=== PATIENT | male | born 1950 | race Caucasian/White ===

== ENCOUNTER 2019-04-19 12:25 | Inpatient (IN) ==
--- NOTE | 2019-04-19 12:41 | Emergency Department Note ---
Disposition Clinical Impression: Elevated troponin, Elevated d-dimer, RODOLFO (acute kidney injury), Right-sided chest wall pain Disposition: Admitted As Inpatient [facility] Care Provider[facility] - Forms: ED Satisfaction Letter Time of Disposition: 16:39 General Adult HPI - General Stated complaint: elevated troponine Time Seen by Provider: 04/19/19 12:31 Source: patient, EMS Mode of arrival: EMS Limitations: no limitations Nursing Notes Reviewed: Yes Vital Signs Reviewed: Yes - History of Present Illness HPI Narrative: Patient is a 68-year-old male with a past medical history including gastroesophageal reflux disease, diabetes mellitus, hypothyroidism, hypertension, iron deficient anemia, hyperlipidemia, presenting with chief complaint of right chest wall pain after a fall. Patient was sent by the [facility] secondary to elevated troponin and d-dimer. The patient states 2 days ago, he was outside and getting out of a chair when he lost his balance and the chair tilted and fell landing on his right side. He landed on his right forearm and right side of his chest. He denies hitting his head or loss of consciousness. He states since then, he complains of right chest wall pain that has been constant and achy. Nothing makes it better or worse. He denies shortness of breath, lightheadedness or dizziness, nausea or vomiting, diaphoresis. He denies history of coronary artery disease or stent placements. He went to the [place] today to see if he had a rib fracture. Chest x-ray and rib series show no rib fractures or pneumothorax. He had a CT head that showed no acute intracranial abnormality. Lab work was also obtained while he was there. D-dimer was elevated at 0.80 with reference range of 0.112 0.53. He had a troponin elevation of 0.415 with reference range of 0-0.045. CK was not elevated, calcium 8.9, sodium 137, potassium 4.1, glucose 180, BUN 50, creatinine 1.64, GFR 44.5. He denies a history of chronic kidney disease. White blood count 8.6, hemoglobin 14.2 hematocrit 39.2, platelet count 158. Patient states he was given a pain shot and his chest wall pain improved. He was sent here for elevated troponin and d-dimer. - Related Data Home Medications Medication Instructions Recorded Confirmed Aspirin 81 mg PO DAILY 08/21/17 08/21/17 Cholecalciferol (Vitamin D3) 1,000 unit PO DAILY 08/21/17 08/21/17 [Vitamin D] Metoprolol [Lopressor] 12.5 mg PO BID 08/21/17 08/21/17 Multivit-Min/FA/Lycopen/Lutein 1 tab PO DAILY 08/21/17 08/21/17 [Centrum Silver Tablet] [place]-3/Dha/Epa/Fish Oil [Fish Oil 1 tab PO DAILY 08/21/17 08/21/17 1,000 mg Softgel] Phenytoin ER [Dilantin ER] 100 mg PO BID 08/21/17 08/21/17 Potassium Chloride [Klor-Con 10] 10 meq PO DAILY 08/21/17 08/21/17 Vit A/Vit C/Vit E/Zinc/Copper 1 tab PO DAILY 08/21/17 08/21/17 [Preservision Areds Tablet] Acitretin [Soriatane] 25 mg PO DAILY 04/19/19 04/19/19 Atorvastatin Calcium [Lipitor] 40 mg PO DAILY 04/19/19 04/19/19 Calcipotriene [Dovonex] 1 gm TP BID 04/19/19 04/19/19 Capsaicin [Arthritis Pain Relief] 1 gm TP QID 04/19/19 04/19/19 Carboxymethylcellulos/Glycerin 1 drop OP TID 04/19/19 04/19/19 [Refresh Optive Gel Eye Drops] Cyclobenzaprine HCl 10 mg PO BID PRN 04/19/19 04/19/19 Gabapentin [Neurontin] 300 mg PO HS 04/19/19 04/19/19 Gabapentin [Neurontin] 600 mg PO ,04/19/19 04/19/19 Insulin ASPART [Novolog Flexpen] 10 unit SQ 08,12 04/19/19 04/19/19 Insulin ASPART [Novolog Flexpen] 16 unit SQ 1700 04/19/19 04/19/19 Insulin Glargine [Lantus] 48 unit SQ HS 04/19/19 04/19/19 Levothyroxine [Synthroid] 2 tab PO DAILY@0630 04/19/19 04/19/19 Lisinopril [Zestril] 40 mg PO DAILY 04/19/19 04/19/19 Loratadine [Allergy Relief] 10 mg PO DAILY 04/19/19 04/19/19 Metformin HCl [Metformin ER 2,000 mg PO DAILY 04/19/19 04/19/19 Osmotic] Mirtazapine [Remeron] 7.5 mg PO HS 04/19/19 04/19/19 Phenytoin ER [Dilantin ER] 300 mg PO HS 04/19/19 04/19/19 hydroCHLOROthiazide 12.5 mg PO DAILY 04/19/19 04/19/19 [Hydrochlorothiazide] Allergies Allergy/AdvReac Type Severity Reaction Status Date / Time Sacrosidase Allergy Swelling Verified 08/21/17 11:56 of Lip/Tongue/Throat All systems ED: reviewed and negative except as stated. Review of Systems: As Per HPI Constitutional: Denies: fever, chills Cardiovascular: Reports: chest pain. Denies: palpitations Respiratory: Denies: cough, dyspnea Gastrointestinal: Denies: abdominal pain, nausea, vomiting, diarrhea Musculoskeletal: Denies: back pain Neurological: Denies: headache, weakness, numbness Past Medical History - Past Medical History Attestation: Yes The following information was validated with the patient. Source: patient Medical history: Reports: CVA, diabetes, seizures Surgical history: Reports: other Psychiatric history: Reports: no psych history - Social History Smoking Status: Never smoker Alcohol use: Reports: none Drug use: Reports: none Physical Exam - General Limitations: no limitations General appearance: alert, in no apparent distress - Head Head exam: atraumatic, normocephalic - Eye Eye exam: Present: normal appearance, PERRL, EOMI - ENT ENT exam: normal exam, mucous membranes moist - Neck Neck exam: Present: normal inspection, full ROM - Chest Chest inspection: Present: normal inspection, symmetric chest wall rise - Respiratory Respiratory exam: Present: normal lung sounds bilaterally. Absent: respiratory distress, wheezes - Cardiovascular Cardiovascular exam: Present: regular rate, normal rhythm, other (3/6 systolic murmur) - Abdominal Exam Abdominal exam: Present: soft, Non-Tender. Absent: distention - Extremities Exam Extremities exam: Present: normal capillary refill. Absent: pedal edema, calf tenderness - Neurological Exam Neurological exam: Present: alert, oriented X3 - Skin Skin exam: Present: other (Ecchymosis over the medial portion of the right forearm without tenderness to palpation, equal radial pulses, full range of motion of all 4 extremities) Course Vital Signs Temperature 98.5 F 04/19/19 12:38 Pulse Rate 97 04/19/19 12:38 Respiratory Rate 12 04/19/19 12:38 Blood Pressure 127/81 04/19/19 12:38 O2 Sat by Pulse Oximetry 99 04/19/19 12:38 Temperature 98.5 F 04/19/19 12:38 Pulse Rate 97 04/19/19 16:22 Respiratory Rate 16 04/19/19 16:22 Blood Pressure 145/85 04/19/19 16:22 O2 Sat by Pulse Oximetry 100 04/19/19 16:22 Oxygen Delivery Oxygen Delivery Room Air Medical Decision Making - MDM Narrative Medical decision making narrative: Labs from the [place] reviewed. Patient does have chest wall tenderness to palpation in on the right around ribs 5 through 7. He denies any shortness of breath or any other chest pain. He denies history of kidney disease and his BUN and creatinine are elevated. Labs are reviewed from the [facility]. He does have elevated troponin and d-dimer as well which she was sent in for. Patient is no acute distress. EKG shows no acute ischemic changes. We will repeat the patient's troponin BMP. We will obtain a CTA chest to rule out a pulmonary embolism secondary to the elevated d-dimer this is medically necessary. Discussed this with environmental services floor tech. We will give him a liter of IV fluids for possible RODOLFO versus EKG and heart rate has been 100's. 13:50 Patient's troponin elevated at 0.28. No prior to compare to. GFR is 41 however due to elevated troponin and d-dimer will need the CTA chest to rule out PE. W ill also give 1 L IVF bolus. 15:30 CTA is negative for pulmonary embolism. Hospice has been paged for admission for elevated troponin and d-dimer, acute kidney injury. 16:[address] Deutsch, hospitalist who accepts admission - Medical Records Medical records reviewed: Yes I reviewed the patient's medical records. - Lab Data Lab results reviewed: Yes I reviewed the patient's lab results. Result diagrams: 04/19/19 13:09 Lab Results 04/19/19 Range/Units 13:09 Sodium 136 (136-145) mEq/L Potassium 4.2 (3.5-5.1) mEq/L Chloride 104 (98-107) mEq/L Carbon Dioxide 24 (23-29) mEq/L BUN 49 H (8-23) mg/dL Creatinine 1.66 H (0.70-1.30) mg/dL Est GFR ( Amer) 50 L (> 60) Est GFR (Non-Af Amer) 41 L (> 60) BUN/Creatinine Ratio 30 H (6-26) Glucose 168 H (70-105) mg/dL Calculated Osmolality 299 (280-300) Calcium 9.3 (8.6-10.3) mg/dL Troponin I 0.28 H* (< 0.04) ng/mL - Radiology Data Radiology results reviewed: Yes I reviewed the patient's radiology results. Chest CTA 04/19/19 12:49 IMPRESSION: No evidence of pulmonary embolism or acute pulmonary abnormality. Large hiatal hernia D/ / David Tinoco MD / David Tinoco MD Interpreting Provider: David Tinoco MD Chest CTA 04/19/19 12:49 IMPRESSION: No evidence of pulmonary embolism or acute pulmonary abnormality. Large hiatal hernia D/ / David Tinoco MD / David Tinoco MD Interpreting Provider: David Tinoco MD - EKG Data EKG #1 EKG attestation: Yes I reviewed and interpreted this EKG. EKG results narrative: EKG obtained at 1237 shows sinus rhythm with heart rate 98, TX interval 201, QRS duration 96, QTc 456, left axis deviation, no ST elevation or depression, compared to [facility]30 that showed sinus tachycardia with heart rate 111, no ST elevation or depression. There is otherwise no acute changes.
[2019-04-19] MEDS ORDERED: Isovue-370 500 ML BOTTLE IVP ONE (12:49)
[2019-04-19 13:49] LABS: Calcium 9.3 mg/dL (8.6-10.3); Potassium 4.2 mEq/L (3.5-5.1)
[2019-04-19 13:54] LABS: Troponin I 0.28 ng/mL (< 0.04)
[2019-04-19] MEDS ORDERED: 0.9 % Sodium Chloride 1,000 ML IVC ONE (13:56)
--- NOTE | 2019-04-19 14:02 | Emergency Department Note ---
Disposition Clinical Impression: Elevated troponin, Elevated d-dimer, RODOLFO (acute kidney injury), Right-sided chest wall pain Disposition: Admitted As Inpatient Time of Disposition: 16:52 General Adult HPI - General Chief complaint: ED Chest Pain Stated complaint: elevated troponine Time Seen by Provider: 04/19/19 12:31 Source: patient, EMS Mode of arrival: EMS Limitations: no limitations - History of Present Illness Pain Scale: 0 - Related Data Home Medications Medication Instructions Recorded Confirmed Aspirin 81 mg PO DAILY 08/21/17 04/19/19 Cholecalciferol (Vitamin D3) 1,000 unit PO DAILY 08/21/17 04/19/19 [Vitamin D] Metoprolol [Lopressor] 50 mg PO BID 08/21/17 04/19/19 Multivit-Min/FA/Lycopen/Lutein 1 tab PO DAILY 08/21/17 04/19/19 [Centrum Silver Tablet] [place]-3/Dha/Epa/Fish Oil [Fish Oil 2 tab PO DAILY 08/21/17 04/19/19 1,000 mg Softgel] Phenytoin ER [Dilantin ER] 400 mg PO DAILY 08/21/17 04/19/19 Potassium Chloride [Klor-Con 10] 10 meq PO DAILY 08/21/17 04/19/19 Vit A/Vit C/Vit E/Zinc/Copper 1 tab PO DAILY 08/21/17 04/19/19 [Preservision Areds Tablet] Acitretin [Soriatane] 25 mg PO DAILY 04/19/19 04/19/19 Atorvastatin Calcium [Lipitor] 40 mg PO DAILY 04/19/19 04/19/19 Calcipotriene [Dovonex] 1 gm TP BID 04/19/19 04/19/19 Capsaicin [Arthritis Pain Relief] 1 gm TP QID 04/19/19 04/19/19 Carboxymethylcellulos/Glycerin 1 drop OP TID 04/19/19 04/19/19 [Refresh Optive Gel Eye Drops] Cyclobenzaprine HCl 10 mg PO BID PRN 04/19/19 04/19/19 Gabapentin [Neurontin] 300 mg PO HS 04/19/19 04/19/19 Gabapentin [Neurontin] 600 mg PO 08,04/19/19 04/19/19 Insulin ASPART [Novolog Flexpen] 10 unit SQ ,04/19/19 04/19/19 Insulin ASPART [Novolog Flexpen] 16 unit SQ 1700 04/19/19 04/19/19 Insulin Glargine [Lantus] 48 unit SQ HS 04/19/19 04/19/19 Levothyroxine [Synthroid] 2 tab PO DAILY@0630 04/19/19 04/19/19 Lisinopril [Zestril] 40 mg PO DAILY 04/19/19 04/19/19 Loratadine [Allergy Relief] 10 mg PO DAILY 04/19/19 04/19/19 Metformin HCl [Metformin ER 2,000 mg PO DAILY 04/19/19 04/19/19 Osmotic] Mirtazapine [Remeron] 7.5 mg PO HS 04/19/19 04/19/19 Phenytoin ER [Dilantin ER] 300 mg PO HS 04/19/19 04/19/19 hydroCHLOROthiazide 12.5 mg PO DAILY 04/19/19 04/19/19 [Hydrochlorothiazide] Allergies Allergy/AdvReac Type Severity Reaction Status Date / Time Sacrosidase Allergy Swelling Verified 08/21/17 11:56 of Lip/Tongue/Throat Constitutional: Denies: fever, chills Cardiovascular: Reports: chest pain. Denies: palpitations Respiratory: Denies: cough, dyspnea Gastrointestinal: Denies: abdominal pain, nausea, vomiting, diarrhea Musculoskeletal: Denies: back pain Neurological: Denies: headache, weakness, numbness Past Medical History - Past Medical History Medical history: Reports: CVA, diabetes, seizures Surgical history: Reports: other Psychiatric history: Reports: no psych history - Social History Smoking Status: Never smoker Alcohol use: Reports: none Drug use: Reports: none Physical Exam - General Limitations: no limitations General appearance: alert, in no apparent distress Course Vital Signs Temperature 98.5 F 04/19/19 12:38 Pulse Rate 97 04/19/19 12:38 Respiratory Rate 12 04/19/19 12:38 Blood Pressure 127/81 04/19/19 12:38 O2 Sat by Pulse Oximetry 99 04/19/19 12:38 Temperature 98.5 F 04/19/19 12:38 Pulse Rate 97 04/19/19 16:22 Respiratory Rate 16 04/19/19 16:22 Blood Pressure 145/85 04/19/19 16:22 O2 Sat by Pulse Oximetry 100 04/19/19 16:22 Oxygen Delivery Oxygen Delivery Room Air Medical Decision Making - Lab Data Result diagrams: 04/19/19 13:09 Lab Results 04/19/19 Range/Units 13:09 Sodium 136 (136-145) mEq/L Potassium 4.2 (3.5-5.1) mEq/L Chloride 104 (98-107) mEq/L Carbon Dioxide 24 (23-29) mEq/L BUN 49 H (8-23) mg/dL Creatinine 1.66 H (0.70-1.30) mg/dL Est GFR ( Amer) 50 L (> 60) Est GFR (Non-Af Amer) 41 L (> 60) BUN/Creatinine Ratio 30 H (6-26) Glucose 168 H (70-105) mg/dL Calculated Osmolality 299 (280-300) Calcium 9.3 (8.6-10.3) mg/dL Troponin I 0.28 H* (< 0.04) ng/mL Attestation Statement - Attestation Attestation: I examined this patient and my medical decision-making was reviewed with the Resident Physician. I agree with the documented findings, disposition and treatment plan as described except to the extent set forth below. 68-year-old male presents emergency room for abnormal labs. Patient was sent to our ER from the [place] for an elevated troponin. Patient had gone in there as he was complaining of right-sided rib pain from a fall on Friday. States he got out of which chair lost his balance and fell down injuring the right side of his chest. He denied any LOC or head injury. He went in today because he is having pain over there on the right side. Was sent to the [place] urgent she is me to our emergency room because his troponin was elevated. It is in fact elevated again here. He has some borderline renal insufficiency. We have ordered a CTA of the chest. Chest x-ray at the [place] was negative. CT brain was also negative. He has no chest pain prior to the fall. He states he has not felt shortness of breath or any significant cough. No fevers. No history DVT or PE. No history of coronary disease. Patient will need to be admitted for this elevated troponin. I do not feel that this is renally induced however we will trend his troponin and is another reason to keep him in the hospital. EKG was documented by the resident. I agree with the above findings and documentation of the EKG
[2019-04-19] MEDS ORDERED: Ondansetron 4 MG/2 ML VIAL IVP PRN (17:06)
[2019-04-19] MEDS ORDERED: Acetaminophen 325 MG TABLET PO PRN (17:06)
[2019-04-19] MEDS ORDERED: Naloxone 0.4 MG/ML INJ IVP PRN (17:06)
--- NOTE | 2019-04-19 17:23 | Internal Med History&Physical ---
Date of Encounter: 04/19/19 Time of Encounter: 17:10 Internal Medicine - H&P: HPI Chief complaint: Chest pain Admitted From: Emergency Dept History of present illness: Renzo Fajardo is a 68 M w hx HTN, HLD, IDDM2, COPD, AMAN, hiatal hernia c/b GERD, seizures, hypothyroidism, former smoker, who p/w R-sided chest pain. States he was outside Friday afternoon watching his grandson and friend playing, and he was sitting in a lawn chair fairly low to the ground. At one point, he tried to get up, but during the process either he lost his footing or the chair slid causing him to lose his balance and he fell forward on his R side, scraping his arm and landing fairly forcefully on his R chest. States since then he has constant aching pain at site of impact, non-radiating, no N/V and no diaphoresis. Denies hx heart disease personally but does have father with extensive cardiac history including MIs and pacemaker. Pt went to [place] to see if he had a rib fx. CXR and CT head unremarkable. Labs notable for D-dimer 800, trop 0.415, Cr 1.64. Pt states he was "given a pain shot" with improvement in his symptoms. He was transferred to [facility] for a forementioned abnormal labs. In the ED, pt vitals T98.5, HR 90-100s, RR 12-17, SBP 120-160s, satting high 90s on room air. BMP and trop rechecked, showing Cr 1.6 and trop 0.28. CTPE unremarkable. ECG showing LAD but no ischemic ST/T changes. PMH: as above PSH: L shoulder surgery SH: former smoker quit 2012 FH: father with MIs and pacemaker Allergies: none Past Med Surg Social Fam HX - Past Medical History Medical history: CVA, diabetes, seizures Psychiatric history: no psych history - Past Surgical History Surgical History: other Additional surgical history: bone cyst - Social History Smoking Status: Never smoker Alcohol use: none Drug use: none Internal Medicine - H&P: Meds Aspirin 81 mg PO DAILY 08/21/17 [History] Cholecalciferol (Vitamin D3) [Vitamin D] 1,000 unit PO DAILY 08/21/17 [History] Metoprolol [Lopressor] 50 mg PO BID 08/21/17 [History] Multivit-Min/FA/Lycopen/Lutein [Centrum Silver Tablet] 1 tab PO DAILY 08/21/17 [History] [employer]-3/Dha/Epa/Fish Oil [Fish Oil 1,000 mg Softgel] 2 tab PO DAILY 08/21/17 [History] Phenytoin ER [Dilantin ER] 400 mg PO DAILY 08/21/17 [History] Potassium Chloride [Klor-Con 10] 10 meq PO DAILY 08/21/17 [History] Vit A/Vit C/Vit E/Zinc/Copper [Preservision Areds Tablet] 1 tab PO DAILY 08/21/17 [History] Acitretin [Soriatane] 25 mg PO DAILY 04/19/19 [History] Atorvastatin Calcium [Lipitor] 40 mg PO DAILY 04/19/19 [History] Calcipotriene [Dovonex] 1 gm TP BID 04/19/19 [History] Capsaicin [Arthritis Pain Relief] 1 gm TP QID 04/19/19 [History] Carboxymethylcellulos/Glycerin [Refresh Optive Gel Eye Drops] 1 drop OP TID 04/19/19 [History] Cyclobenzaprine HCl 10 mg PO BID PRN 04/19/19 [History] Gabapentin [Neurontin] 300 mg PO HS 04/19/19 [History] Gabapentin [Neurontin] 600 mg PO ,04/19/19 [History] Insulin ASPART [Novolog Flexpen] 10 unit SQ 08,12 04/19/19 [History] Insulin ASPART [Novolog Flexpen] 16 unit SQ 1700 04/19/19 [History] Insulin Glargine [Lantus] 48 unit SQ HS 04/19/19 [History] Levothyroxine [Synthroid] 2 tab PO DAILY@0630 04/19/19 [History] Lisinopril [Zestril] 40 mg PO DAILY 04/19/19 [History] Loratadine [Allergy Relief] 10 mg PO DAILY 04/19/19 [History] Metformin HCl [Metformin ER Osmotic] 2,000 mg PO DAILY 04/19/19 [History] Mirtazapine [Remeron] 7.5 mg PO HS 04/19/19 [History] Phenytoin ER [Dilantin ER] 300 mg PO HS 04/19/19 [History] hydroCHLOROthiazide [Hydrochlorothiazide] 12.5 mg PO DAILY 04/19/19 [History] Allergy/AdvReac Type Severity Reaction Status Date / Time Sacrosidase Allergy Swelling Verified 08/21/17 11:56 of Lip/Tongue/Throat All Systems PM: A 10-system review of systems was performed and is negative for pertinent findings except as documented above in the HPI. - Constitutional Vitals: Temp Pulse Resp BP Pulse Ox 98.5 F 97 16 145/85 100 04/19/19 12:38 04/19/19 16:22 04/19/19 16:22 04/19/19 16:22 04/19/19 16:22 Exam: General: NAD, AAOx3, good eye contact, well appearing Head: Atraumatic, normocephalic. Face symmetric Eyes: EOMI, sclerae anicteric ENT: Mucous membranes moist. Normal oral mucosa. Trachea midline. Thoracic: No visible chest wall deformities. Normal breath sounds b/l, no wheezing or crackles Cardio: Regular rate and rhythm, obvious systolic murmur Abdomen: Soft, nontender, nondistended but is large, BS normal Extremities: DP pulses 1+ b/l DP/PT, cool to touch. No clubbing, cyanosis. No edema Skin: Intact. No rashes, bruises, or ulcers Neuro: Awake, fully oriented. Good memory, concentration, attention. Speech fluent. CN II-XII grossly intact. Strength 5/5 in b/l UE and LE Internal Med - H&P Results - Labs CBC & Chem 7: 04/19/19 13:09 Labs: BMP 04/19/19 13:09 Sodium 136 Potassium 4.2 Chloride 104 Carbon Dioxide 24 BUN 49 H Creatinine 1.66 H Glucose 168 H Calcium 9.3 Cardiac Enzymes 04/19/19 Range/Units 13:09 Troponin I 0.28 H* (< 0.04) ng/mL - Impressions ITS Impressions Chest CTA 04/19/19 12:49 IMPRESSION: No evidence of pulmonary embolism or acute pulmonary abnormality. Large hiatal hernia D/ / David Tinoco MD / David Tinoco MD Interpreting Provider: David Tinoco MD - Summary of Assessment and Plan Summary of Assessment and Plan: Renzo Fajardo is a 68 M w hx HTN, HLD, IDDM2, COPD, AMAN, hiatal hernia c/b FROYLAN D, seizures, hypothyroidism, former smoker, who p/w R-sided chest pain. Chest pain: in context of minimal d-dimer elevation following fall for which CTPE unremarkable, and significant trop elevation that is downtrending with non- ischemic ECG and pain non-cardiac in nature - tele - trend trops - TTE - Cardio consult RODOLFO: unknown baseline, Cr 1.66 on admit, fluid bolus appropriately given with co ntrast, - will hold hctz and lisinopril - check UA and measure strict I&Os - renally dose other meds as needed, recheck Cr in AM Diminished pedal pulses, concern for PAD: denies claudication - STACY HTN: uncontrolled - continue home lopressor 12.5 bid - holding home lisinopril 40 and hctz 12.5 - start amlodipine 5 daily HLD: home ASA, lipitor 40 DM2: insulin dependent, w hyperglycemia, home lantus 48 qhs and SSI high dose, holding metformin 2000 ER daily Hypothyroidism: home synthroid Dep/anx: home remeron 7.5 qhs Seizures: home phenytoin 100/400 bid Psoriasis: home acitretin 25 daily, calcipotriene topical PPx: sqh Activity: ambulate FEN: ADA, no MIVF Lines: PIV Consults: Cardio Code: [id number] Dispo: obs for chest pain, anticipate 1-2 days, will be homegoing
[2019-04-19 18:38] LABS: Bilirubin,Urine Negative (Negative); Blood,Urine Negative (Negative); Clarity,Urine Clear (Clear); Color,Urine Yellow (Yellow); Glucose,Urine (UA) Normal (Normal); Ketones,Urine Negative (Negative); Leukocyte Esterase,Urine Negative (Negative); Nitrite,Urine Negative (Negative); PH,Urine 5.5 pH Units (5.0-8.0); Protein,Urine Negative (Neg-Trace); Specific Gravity,Urine 1.022 (1.010-1.025); Urobilinogen,Urine Normal (Normal)
[2019-04-19] MEDS: amLODIPine 5 MG TABLET PO SCH (19:34)
[2019-04-19] MEDS ORDERED: D5% in Water 1,000 ML IVC PRN (20:16)
[2019-04-19] MEDS ORDERED: *HR* Dextrose 50 % in Water (Syg) 50 ML SYRINGE IVP PRN (20:16)
[2019-04-19] MEDS ORDERED: Dextrose Gel 15 GM/37.5 ML TUBE PO PRN ×2 (20:16)
[2019-04-19] MEDS ORDERED: Perflutren Lipid Microsphere 1.3 ML in 0.9 % Sodium Chloride 8.7 ML IVP ONE (20:36)
[2019-04-19] MEDS ORDERED: INSULIN GLARGINE SQ SCH (21:00)
[2019-04-19] MEDS ORDERED: Insulin LISPRO 300 UNITS/3 ML VIAL SQ SCH (21:00)
[2019-04-19] MEDS ORDERED: Gabapentin 300 MG CAPSULE PO SCH (21:00)
[2019-04-19] MEDS ORDERED: Mirtazapine 15 MG TABLET PO SCH (21:00)
[2019-04-20 07:45] LABS: Hematocrit 38.8 % (37.5-50.1); Hemoglobin 13.9 g/dL (12.9-16.9); Mean Corpuscular HGB Conc 35.8 g/dL (31.6-35.5); Mean Corpuscular Hemoglobin 33.1 pg (28.0-33.3); Mean Corpuscular Volume 92.4 fL (83.0-100.0); Mean Platelet Volume 9.3 fL (9.4-12.4); Platelet Count 134 K/mcL (140-400); Red Cell Distribution Width 12.7 % (11.5-14.5); White Blood Count 6.1 K/mcL (4.3-11.1)
[2019-04-20] MEDS ORDERED: Gabapentin 300 MG CAPSULE PO SCH (08:00)
[2019-04-20 08:02] LABS: Chol/HDL Ratio 6.5 (0-4.9); Cholesterol 168 mg/dL (< 200); HDL Cholesterol 26 mg/dL (40-59); Phosphorous 4.1 mg/dL (2.7-4.5); Triglycerides 505 mg/dL (< 150)
[2019-04-20 08:05] LABS: INR 1.1; Prothrombin Time 12.4 Seconds (9.4-12.1)
[2019-04-20] MEDS: amLODIPine 5 MG TABLET PO SCH (08:07)
[2019-04-20] MEDS: Insulin LISPRO 300 UNITS/3 ML VIAL SQ SCH ×2 (08:07→12:13)
[2019-04-20 08:15] LABS: Alanine Aminotransferase 35 Units/L (7-52); Albumin 3.8 g/dL (3.5-5.7); Albumin/Globulin Ratio 1.3 (1.1-2.2); Alkaline Phosphatase 59 Units/L (34-104); Aspartate Amino Transferase 23 Units/L (13-39); BUN/Creatinine Ratio 34 (6-26); Bilirubin,Direct 0.2 mg/dL (0.0-0.2); Bilirubin,Indirect 0.4 mg/dL (0.0-1.2); Bilirubin,Total 0.6 mg/dL (0.3-1.0); Blood Urea Nitrogen 37 mg/dL (8-23); Calcium 9.4 mg/dL (8.6-10.3); Carbon Dioxide 24 mEq/L (23-29); Chloride 104 mEq/L (98-107); Globulin 2.9 g/dL (2.4-3.5); Glucose 157 mg/dL (70-105); Magnesium 1.8 mg/dL (1.6-2.6); Osmolality,Calculated 302 (280-300); Sodium 140 mEq/L (136-145); Total Protein 6.7 g/dL (6.4-8.9); Troponin I 0.18 ng/mL (< 0.04); eGFR For African Americans > 60 (> 60); eGFR For Non-African Americans > 60 (> 60)
--- NOTE | 2019-04-20 08:22 | Discharge Summary ---
Date of Encounter: 04/20/19 Time of Encounter: 13:45 Hospital course: Dear Doctors, I recently had the opportunity to care for this patient during their recent hospital stay at [facility]. Renzo Fajardo is a 68 M w hx HTN, HLD, IDDM2, PAD, COPD, AMAN, hiatal hernia c/b GERD, seizures, hypothyroidism, former smoker, who presented at time of admission with R-sided chest pain. Pain started after attempting to stand from lawn chair which slid, causing him to lose his balance and he fell forward on his R side, scraping his arm and landing fairly forcefully on his R chest. States since then he has had constant aching pain at site of impact, non- radiating. Pt went to [place] where CXR and CT head unremarkable. However, labs notable for D-dimer 800, trop 0.415, Cr 1.64. Transferred to [place]. In our ED, pt vitals T98.5, HR 90-100s, RR 12-17, SBP 120-160s, satting high 90s on room air. BMP and trop rechecked, showing Cr 1.6 and trop 0.28. CTPE obtained which was unremarkable, and fluid bolus administered with IV contrast. ECG showing LAD but no ischemic ST/T changes. Admitted for chest pain / OK rule out. In the hospital, pain did not recur. Trops downtrended expectantly, and his renal function improved on AM labs. TTE did not reveal any significant structural abnormalities, and Cardio consult rec'd no further ischemic evaluation while inpatient and to follow up outpatient Cardio. Of note, he did have diminished pedal pulses, for which an STACY was obtained showing diminished LE blood flow; he will need to follow up outpatient w VascSurg. Dx: noncardiac chest pain, RODOLFO, elevated troponin, elevated d-dimer, PAD Pertinent tests/consults: Cardio consult, TTE unremarkable, STACY showing Follow up: PCP 1 week, referral to VascSurg for BLE PAD Tests pending: none Med changes: none Mental status: awake, fully oriented Code status: DNRCC-A DNI It has been my pleasure participating in this patient's care. Please contact me with any questions or concerns regarding their hospital stay. Sincerely, Jose Woody MD - Discharge Medications Prescriptions: New amLODIPine [Norvasc] 5 mg PO DAILY #30 tablet Continued Phenytoin ER [Dilantin ER] 400 mg PO DAILY Metoprolol [Lopressor] 50 mg PO BID Vit A/Vit C/Vit E/Zinc/Copper [Preservision Areds Tablet] 1 tab PO DAILY Potassium Chloride [Klor-Con 10] 10 meq PO DAILY [place]-3/Dha/Epa/Fish Oil [Fish Oil 1,000 mg Softgel] 2 tab PO DAILY Multivit-Min/FA/Lycopen/Lutein [Centrum Silver Tablet] 1 tab PO DAILY Cholecalciferol (Vitamin D3) [Vitamin D3] 1,000 unit PO DAILY Aspirin 81 mg PO DAILY Phenytoin ER [Dilantin ER] 300 mg PO HS Insulin ASPART [Novolog Flexpen] 16 unit SQ 1700 Mirtazapine [Remeron] 7.5 mg PO HS Loratadine [Allergy Relief] 10 mg PO DAILY Levothyroxine [Synthroid] 2 tab PO DAILY@0630 Gabapentin [Neurontin] 300 mg PO HS Insulin Glargine [Lantus] 48 unit SQ HS Insulin ASPART [Novolog Flexpen] 10 unit SQ 08,12 Gabapentin [Neurontin] 600 mg PO , Cyclobenzaprine HCl 10 mg PO BID PRN PRN Reason: Muscle Spasm Carboxymethylcellulos/Glycerin [Refresh Optive Gel Eye Drops] 1 drop OP TID Atorvastatin Calcium [Lipitor] 40 mg PO DAILY Acitretin [Soriatane] 25 mg PO DAILY Calcipotriene [Dovonex] 1 gm TP BID Capsaicin [Arthritis Pain Relief] 1 gm TP QID Changed Metformin HCl [Metformin ER Osmotic] 1,000 mg PO DAILY #0 Discontinued Lisinopril [Zestril] 40 mg PO DAILY hydroCHLOROthiazide [Hydrochlorothiazide] 12.5 mg PO DAILY Home Medications: Aspirin 81 mg PO DAILY 08/21/17 [History] Cholecalciferol (Vitamin D3) [Vitamin D3] 1,000 unit PO DAILY 08/21/17 [History] Metoprolol [Lopressor] 50 mg PO BID 08/21/17 [History] Multivit-Min/FA/Lycopen/Lutein [Centrum Silver Tablet] 1 tab PO DAILY 08/21/17 [History] [place]-3/Dha/Epa/Fish Oil [Fish Oil 1,000 mg Softgel] 2 tab PO DAILY 08/21/17 [History] Phenytoin ER [Dilantin ER] 400 mg PO DAILY 08/21/17 [History] Potassium Chloride [Klor-Con 10] 10 meq PO DAILY 08/21/17 [History] Vit A/Vit C/Vit E/Zinc/Copper [Preservision Areds Tablet] 1 tab PO DAILY 08/21/17 [History] Acitretin [Soriatane] 25 mg PO DAILY 04/19/19 [History] Atorvastatin Calcium [Lipitor] 40 mg PO DAILY 04/19/19 [History] Calcipotriene [Dovonex] 1 gm TP BID 04/19/19 [History] Capsaicin [Arthritis Pain Relief] 1 gm TP QID 04/19/19 [History] Carboxymethylcellulos/Glycerin [Refresh Optive Gel Eye Drops] 1 drop OP TID 04/19/19 [History] Cyclobenzaprine HCl 10 mg PO BID PRN 04/19/19 [History] Gabapentin [Neurontin] 300 mg PO HS 04/19/19 [History] Gabapentin [Neurontin] 600 mg PO ,04/19/19 [History] Insulin ASPART [Novolog Flexpen] 10 unit SQ ,12 04/19/19 [History] Insulin ASPART [Novolog Flexpen] 16 unit SQ 1700 04/19/19 [History] Insulin Glargine [Lantus] 48 unit SQ HS 04/19/19 [History] Levothyroxine [Synthroid] 2 tab PO DAILY@0630 04/19/19 [History] Loratadine [Allergy Relief] 10 mg PO DAILY 04/19/19 [History] Mirtazapine [Remeron] 7.5 mg PO HS 04/19/19 [History] Phenytoin ER [Dilantin ER] 300 mg PO HS 04/19/19 [History] Metformin HCl [Metformin ER Osmotic] 1,000 mg PO DAILY #0 04/20/19 [Rx] amLODIPine [Norvasc] 5 mg PO DAILY #30 tablet 04/20/19 [Rx] Allergies/Adverse Reactions: Allergy/AdvReac Type Severity Reaction Status Date / Time Sacrosidase Allergy Swelling Verified 08/21/17 11:56 of Lip/Tongue/Throat Date of admission: 04/19/19 16:40 Primary care physician: [facility]CP [facility] Consults: 04/19/19 18:30 Consult to Cardiology [CONS] Routine Comment: Consulting Provider: Cardiology Magda Reason for Consult: noncardiac chest pain after a fall but with mild trop elevation to 0.4 Call Completed: Yes - Constitutional Vitals: Temp Pulse Resp BP Pulse Ox 97.5 F L 83 18 128/73 96 04/20/19 07:35 04/20/19 07:35 04/20/19 07:35 04/20/19 07:35 04/20/19 07:35 Exam: General: NAD, AAOx3, good eye contact, well appearing Thoracic: Normal breath sounds b/l, no wheezing or crackles Cardio: Regular rate and rhythm, obvious systolic murmur Abdomen: Soft, nontender, nondistended but is large, BS normal Extremities: DP pulses 1+ b/l DP/PT, cool to touch. No edema Skin: Intact. No rashes, bruises, or ulcers Neuro: Awake, fully oriented. Speech fluent. - Patient Status Disposition: Home, Self-Care Condition: Fair Functional capacity at discharge: independent ambulation Overall status at discharge: patient is back to baseline - Discharge Instructions Follow Up With: [facility],PCP [Primary Care Provider] - Tray West MD [Partnered Physician] - (1 month, abnormal ABIs) - Diet and Activity Activity: resume usual activities as tolerated Diet: advance to your usual diet
[2019-04-20] MEDS ORDERED: Aspirin 81 MG TAB.CHEW PO SCH (09:00)
[2019-04-20] MEDS ORDERED: Loratadine 10 MG TABLET PO SCH (09:00)
[2019-04-20 11:57] VITALS: BP 111/73
--- NOTE | 2019-04-20 13:13 | Cardiology Consult Note ---
<Lissette Saucedo - Last Filed: 04/20/19 14:47> Date of Encounter: 04/20/19 Time of Encounter: 09:45 Assessment and Plan (1) Right-sided chest wall pain Status: Acute Per Cardiology: -Reproduceable right sided chest wall pain after pain. -Chest pain musculoskeletal. (2) Elevated troponin Status: Acute Per cardiology: -Troponins 0.4 [facility], 0.28, 0.18 in the setting of RODOLFO, fall. -Reports atypical, reproduceable right sided chest pain. -Denies chest pain prior to fall. -No acute ischemic ECG changes noted. -NO previous cardiac testing to review. -On asa, statin, bb. -TTE with LVEF preserved, reported as basal inferior wall hypokinesis, however images reviewed by and noted to have normal wall motion. -Recommend outpatient stress test. -Cardiology will sign off, will arrange outpatient follow up. (3) RODOLFO (acute kidney injury) Status: Acute Per cardiology: -RODOLFO on admission, now resolved. -Management per primary service. Discussion w patient/family: The assessment and plan as outlined above was discussed with the patient who expressed understanding and agreement. All questions were answered. Thank you for involving us in the care of your patient. Please call with any questions. Discussed and reviewed with . History of Present Illness Consult date: 04/19/19 Requesting physician: Jose Woody Consult reason: elevated troponin Chief complaint: fall, right sided pain History of present illness: Mr. Fajardo is a 68 year old male with a relevant past medical history of HTN, HLD, seizures, TIA, HTN, hypothyroidism, barrets esophagus, thyroid nodule, anemia, who presented to [facility] with complaints of right sided pain after a fall. Patient was noted to have elevated troponin and was transferred to [facility]. Patient denies left sided chest pain. Reports right rib and side pain related to fall. Denies chest pain prior to fall. Denies shortness of breath. Denies increased fatigue. Reports mechanical fall. Past Med Surg Social Fam HX - Past Medical History Attestation: Yes The following information was validated with the patient. Source: patient, old records reviewed Medical history: CVA, diabetes, seizures Additional medical history: hyperthyroidism Psychiatric history: no psych history - Past Surgical History Surgical History: other Additional surgical history: bone cyst - Social History Smoking Status: Never smoker Alcohol use: none Drug use: none - Family History Father Hx Family Cancer: Yes (lung, back, brain) Hx Family Endocrine Disorder: Yes Medications and Allergies Aspirin 81 mg PO DAILY 08/21/17 [History] Cholecalciferol (Vitamin D3) [Vitamin D3] 1,000 unit PO DAILY 08/21/17 [History] Metoprolol [Lopressor] 50 mg PO BID 08/21/17 [History] Multivit-Min/FA/Lycopen/Lutein [Centrum Silver Tablet] 1 tab PO DAILY 08/21/17 [History] [place]-3/Dha/Epa/Fish Oil [Fish Oil 1,000 mg Softgel] 2 tab PO DAILY 08/21/17 [History] Phenytoin ER [Dilantin ER] 400 mg PO DAILY 08/21/17 [History] Potassium Chloride [Klor-Con 10] 10 meq PO DAILY 08/21/17 [History] Vit A/Vit C/Vit E/Zinc/Copper [Preservision Areds Tablet] 1 tab PO DAILY 08/21/17 [History] Acitretin [Soriatane] 25 mg PO DAILY 04/19/19 [History] Atorvastatin Calcium [Lipitor] 40 mg PO DAILY 04/19/19 [History] Calcipotriene [Dovonex] 1 gm TP BID 04/19/19 [History] Capsaicin [Arthritis Pain Relief] 1 gm TP QID 04/19/19 [History] Carboxymethylcellulos/Glycerin [Refresh Optive Gel Eye Drops] 1 drop OP TID 04/19/19 [History] Cyclobenzaprine HCl 10 mg PO BID PRN 04/19/19 [History] Gabapentin [Neurontin] 300 mg PO HS 04/19/19 [History] Gabapentin [Neurontin] 600 mg PO 08,17 04/19/19 [History] Insulin ASPART [Novolog Flexpen] 10 unit SQ 08,12 04/19/19 [History] Insulin ASPART [Novolog Flexpen] 16 unit SQ 1700 04/19/19 [History] Insulin Glargine [Lantus] 48 unit SQ HS 04/19/19 [History] Levothyroxine [Synthroid] 2 tab PO DAILY@0630 04/19/19 [History] Loratadine [Allergy Relief] 10 mg PO DAILY 04/19/19 [History] Mirtazapine [Remeron] 7.5 mg PO HS 04/19/19 [History] Phenytoin ER [Dilantin ER] 300 mg PO HS 04/19/19 [History] Metformin HCl [Metformin ER Osmotic] 1,000 mg PO DAILY #0 04/20/19 [Rx] amLODIPine [Norvasc] 5 mg PO DAILY #30 tablet 04/20/19 [Rx] Allergy/AdvReac Type Severity Reaction Status Date / Time Sacrosidase Allergy Swelling Verified 08/21/17 11:56 of Lip/Tongue/Throat All Systems Review: The remainder of the systems were reviewed and are negative - Cardiovascular Cardiovascular: as per HPI - Musculoskeletal Musculoskeletal: other (fall) Physical Examination Vital Signs, Last 4 Hours Temp Pulse Resp BP Pulse Ox 04/20/19 11:56 97.8 F 77 18 111/73 98 General: Conversant, No Apparent Distress HEENT: Atraumatic, Normocephaly, Mucus Membranes Moist Neck: No JVD, Normal carotid pulses Cardiac: Reg Rate and Rhythm, Normal S1 and S2, No Murmur Lungs: Normal Breath Sounds, No Wheeze, Rales, Rhonchi Neuro: Alert and responsive, No focal deficits noted Abdomen: Soft, Non-Tender Skin: No rashes noted on visualized skin Musculoskeletal: Other (Right sided chest wall pain reproduceable with palpation. ) Extremities: No Clubbing, No Cyanosis, No Edema, Normal Pulses Results 04/20/19 06:20 04/20/19 06:20 Lab Results Impressions Chest CTA 04/19/19 12:49 IMPRESSION: No evidence of pulmonary embolism or acute pulmonary abnormality. Large hiatal hernia D/ / David Tinoco MD / David Tinoco MD Interpreting Provider: David Tinoco MD Echocardiogram 04/19/19 17:04 Impressions: Technically sub-optimal due to poor echocardiographic windows. LVEF 60%. Mild concentric left ventricular hypertrophy. Indeterminate diastolic function. The right ventricle was not well visualized but appeared grossly normal in size Mild aortic stenosis.Peak aortic velocity 2.46m/s and mean gradient 13mmHg No evidence of pulmonary hypertension. Left Ventricular Wall Motion: Rest Echo Findings The basal inferior septal wall was hypokinetic. All other wall segments showed normal motion. Findings: Study Quality * Technically sub-optimal due to poor echocardiographic windows. ECG Findings * Sinus rhythm with BBB. Left Ventricle * LVEF 60%. * Mild concentric left ventricular hypertrophy. * Indeterminate diastolic function. * Definity echo contrast was used. * Atypical septal motion noted. * Normal LV chamber size. Right Ventricle * The right ventricle was not well visualized but appeared grossly normal in size Left Atrium * Normal left atrial size. Right Atrium * Normal right atrial size. Aortic Valve * Aortic valve not well visualized. * Mild aortic stenosis. * No aortic regurgitation. Mitral Valve * Normal mitral valve structure. * No mitral regurgitation. * No mitral stenosis. * Mild mitral annular calcification Tricuspid Valve * Trace tricuspid regurgitation. * No evidence of pulmonary hypertension. * No tricuspid stenosis. Pulmonic Valve * Pulmonic valve is not well visualized. Aorta * Normally sized aortic root. Pericardium * The pericardium appears normal. IVC * Normal IVC dimensions and inspiratory collapse. Pulmonary Artery * Pulmonary artery not well visualized. Active Medications Acetaminophen (Tylenol) 650 mg PO Q6HR PRN PRN Reason: Mild Pain/Fever Stop: 10/19/19 17:07 Amlodipine Besylate (Norvasc) 5 mg PO DAILY [facility]; Protocol Stop: 10/19/19 18:16 Last Admin: 04/20/19 08:07 Dose: 5 mg Documented by: Aspirin (Aspirin) 81 mg PO DAILY [facility] Stop: 10/20/19 09:01 Last Admin: 04/20/19 08:07 Dose: 81 mg Documented by: Atorvastatin Calcium (Lipitor) 40 mg PO DAILY [facility] Stop: 10/20/19 09:01 Last Admin: 04/20/19 08:06 Dose: 40 mg Documented by: Cyclobenzaprine HCl (Flexeril) 10 mg PO BID PRN PRN Reason: Muscle Spasm Stop: 10/19/19 20:15 Last Admin: 04/19/19 21:41 Dose: 10 mg Documented by: Dextrose/Water (Dextrose 50% (Syg)) 25 ml IVP AD PRN PRN Reason: Hypoglycemia Stop: 10/19/19 20:17 Gabapentin (Neurontin) 300 mg PO HS [facility] Stop: 10/19/19 21:01 Last Admin: 04/19/19 21:41 Dose: 300 mg Documented by: Gabapentin (Neurontin) 600 mg PO 0800,1700 [facility] Stop: 10/20/19 08:01 Last Admin: 04/20/19 08:12 Dose: 600 mg Documented by: Glucagon (Glucagen) 1 mg IM ONCE PRN PRN Reason: Hypoglycemia Stop: 10/19/19 20:17 Glucose (Gluctose) 15 gm PO ONCE PRN PRN Reason: Hypoglycemia Stop: 10/19/19 20:17 Glucose (Gluctose) 30 gm PO ONCE PRN PRN Reason: Hypoglycemia Stop: 10/19/19 20:17 Dextrose (Dextrose 5%) 1,000 mls @ 100 mls/hr IVC .Q10H PRN PRN Reason: HYPOGLYCEMIA Stop: 10/19/19 20:17 Insulin Detemir (Levemir) 48 unit SQ [facility] Stop: 10/20/19 21:01 Insulin Human Lispro (Humalog) 0 units SQ HS [facility]; Protocol Stop: 10/19/19 21:01 Last Admin: 04/19/19 21:48 Dose: 7 units Documented by: Insulin Human Lispro (Humalog) 0 units SQ TIDAC [facility]; Protocol Stop: 10/20/19 07:31 Last Admin: 04/20/19 12:13 Dose: 8 units Documented by: Levothyroxine Sodium (Synthroid) 274 mcg PO DAILY@0630 [facility] Stop: 10/20/19 06:31 Last Admin: 04/20/19 06:03 Dose: 274 mcg Documented by: Loratadine (Claritin) 10 mg PO DAILY [facility]; Protocol Stop: 10/20/19 09:01 Last Admin: 04/20/19 08:06 Dose: 10 mg Documented by: Metoprolol Tartrate (Lopressor) 50 mg PO BID [facility] Stop: 10/19/19 21:01 Last Admin: 04/20/19 08:06 Dose: 50 mg Documented by: Mirtazapine (Remeron) 7.5 mg PO [facility] Stop: 10/19/19 21:01 Last Admin: 04/19/19 21:41 Dose: 7.5 mg Documented by: Naloxone HCl (Narcan) 0.4 mg IVP Q2MPRN PRN PRN Reason: SEE COMMENTS Stop: 10/19/19 17:07 Ondansetron HCl (Zofran) 4 mg IVP Q8HR PRN PRN Reason: Nausea And Vomiting Stop: 10/19/19 17:07 Phenytoin (Dilantin Er) 300 mg PO HS [facility] Stop: 10/19/19 21:01 Last Admin: 04/19/19 21:41 Dose: 300 mg Documented by: Phenytoin (Dilantin Er) 400 mg PO DAILY [facility] Stop: 10/21/19 09:01 Laboratory Tests 04/19/19 04/20/19 04/20/19 13:09 06:20 06:20 Hgb 13.9 Creatinine 1.66 H 1.09 Troponin I 0.28 H* 0.18 H* - Imaging and Cardiology Chest Xray: report reviewed Echo: report reviewed - EKG Interpretation EKG results cardiology: personally reviewed (ECG with SR, HR 98.), other (Telemetry reviewed with average HR previous 12 hours noted to be 86, SR. PVCs, PACs noted.) Consult Discharge Plan - Plan Instructions: Amlodipine (By mouth), Diabetes Mellitus Type 2 in Adults (GEN) Referrals: [facility],PCP [Primary Care Provider] - 04/26/19 10:00 am (Please follow up as schedule...) Tray West MD [Partnered Physician] - 05/19/19 8:30 am (1 month, abnormal ABIs) <Kierra Abreu - Last Filed: 04/20/19 16:56> Date of Encounter: 04/20/19 - Attending Attestation I examined this patient and my medical decision-making was reviewed with the DEHYDRATION UNIT OPERATOR. I agree with the documented findings, disposition and treatment plan as described. Mr. Fajardo presents with right sided chest discomfort after a mechanical fall, reproducible on exam. Incidentally discovered to have elevated troponin in setting of RODOLFO. Denies chest pain prior to the fall. No acute ECG changes. TTE images personally reviewed. Overall, LV systolic function appears normal. Discussed options with patient. He prefers to go home and follow up with Cardiology at which time a stress test can be considered. Continue asa, statin, BB. Patient advised to call 911 and seek emergent medical care should he have severe/persistent chest pain. Patient in agreement with the plan. Assessment and Plan Discussion w patient/family: The assessment and plan as outlined above was discussed with the patient and/or family members who expressed understanding and agreement. All questions were answered. Thank you for involving us in the care of your patient. Please call with any questions. History of Present Illness History of present illness: Mr. Fajardo is a 68 year old male All Systems Review: The remainder of the systems were reviewed and are negative Results 04/20/19 06:20 04/20/19 06:20 Lab Results 04/19/19 04/20/19 04/20/19 13:09 06:20 06:20 WBC 6.1 Hgb 13.9 Hct 38.8 Plt Count 134 L INR 1.1 Sodium Potassium Chloride Carbon Dioxide BUN Creatinine Glucose Calcium Magnesium 2.0 Total Bilirubin AST ALT Alkaline Phosphatase Troponin I 04/20/19 06:20 WBC Hgb Hct Plt Count INR Sodium 140 Potassium 4.0 Chloride 104 Carbon Dioxide 24 BUN 37 H Creatinine 1.09 Glucose 157 H Calcium 9.4 Magnesium 1.8 Total Bilirubin 0.6 AST 23 ALT 35 Alkaline Phosphatase 59 Troponin I 0.18 H*
--- NOTE | 2019-04-20 16:16 | Electrocardiograph Report ---
[address] [address] Test Date: 2019-04-19 Pat Name: Renzo Fajardo Department: [id number] Room: 2A Gender: M Emt Intermediate: : 1950 Requested By: Sirisha Mcgee Order Number: [id number] Reading MD: Tj Carter Measurements Intervals [place] Rate: 98 P: 54 DE: 201 QRS: -37 QRSD: 96 T: 71 QT: 357 QTc: 456 Interpretive Statements Sinus rhythm Left axis deviation Electronically Signed On 04-20-2019 16:14:49 EDT by Tj Carter
[2019-04-20] MEDS ORDERED: Insulin DETEMIR 100 UNIT/ML X5UNITS SQ SCH (21:00)
== END 2019-04-20 15:09 | disposition home or self-care (01) | DRG 313 ==
LOC: 2ANU 12:25 → EMEROOARM 12:25 → SUATTDRO 16:40 → 2ANU 17:25
PROVIDERS: ADMIT Internal Medicine; ATTEND Internal Medicine

== ENCOUNTER 2019-08-18 06:06 | Inpatient (IN) ==
[2019-08-18] MEDS ORDERED: CeFAZolin Syr 2,000MG/20 ML 2,000 MG/20 ML SYRINGE IVPB ONE (06:26)
[2019-08-18] MEDS ORDERED: Ringers Solution, Lactated 1,000 ML IVC SCH (06:30)
[2019-08-18] MEDS ORDERED: Acetaminophen IV 1,000 MG/100 ML INFUS..BTL IVPB ONE (07:00)
[2019-08-18] MEDS ORDERED: Gabapentin 300 MG CAPSULE PO ONE (07:01)
[2019-08-18] MEDS ORDERED: Celecoxib 200 MG CAPSULE PO ONE (07:01)
[2019-08-18] MEDS ORDERED: *HR* HYDROcodone/Acet 5/325 mg TABLET PO PRN (07:02)
[2019-08-18] MEDS ORDERED: *HR* FentaNYL (PF) 100 MCG/2 ML VIAL ONE ×2 (07:11→13:51)
[2019-08-18] MEDS ORDERED: Ondansetron 4 MG/2 ML VIAL ONE ×2 (07:11→13:51)
[2019-08-18] MEDS ORDERED: Dexamethasone 4 MG/ML VIAL ONE ×2 (07:11→13:51)
[2019-08-18] MEDS ORDERED: Lidocaine -MPF 2% 2 ML VIAL ONE ×2 (07:11→13:51)
[2019-08-18] MEDS ORDERED: *HR* Rocuronium Bromide 50 MG/5 ML VIAL ONE ×5 (07:11→13:51)
[2019-08-18] MEDS ORDERED: Albuterol 2.5 MG/3 ML NEBULIZER IH PRN (07:11)
[2019-08-18] MEDS ORDERED: *HR* Succinylcholine 200 MG/10 ML VIAL IVP ONE (07:11)
[2019-08-18] MEDS ORDERED: *HR* Propofol 200 MG/20 ML VIAL IVP ONE ×2 (07:12→13:51)
[2019-08-18] MEDS ORDERED: *HR* PHENYLEPHRINE 1,000 MCG/10 ML SYRINGE IVP ONE (08:25)
[2019-08-18] MEDS ORDERED: EPHEDrine 50 MG/ML VIAL ONE (08:26)
[2019-08-18] MEDS ORDERED: *HR* Phenylephrine 10 MG/ML VIAL ONE (09:22)
[2019-08-18] MEDS: Morphine Sulfate 2 MG/ML SYRINGE IVP PRN ×3 (12:05→12:42)
[2019-08-18] MEDS ORDERED: Ondansetron 4 MG/2 ML VIAL IVP PRN (15:18)
[2019-08-18] MEDS: ceFAZolin 3,000 MG in 0.9 % Sodium Chloride 100 ML IVPB SCH (16:37)
[2019-08-18] MEDS: 0.9 % Sodium Chloride 1,000 ML IVC SCH (16:38)
[2019-08-18] MEDS: *HR* Metoprolol 5 MG/5 ML VIAL IVP SCH ×2 (16:38→17:15)
[2019-08-18] MEDS: *HR* Heparin 5,000 UNIT/ML VIAL SQ SCH (18:43)
[2019-08-19] MEDS: *HR* Metoprolol 5 MG/5 ML VIAL IVP SCH ×4 (00:32→17:29)
[2019-08-19] MEDS: ceFAZolin 3,000 MG in 0.9 % Sodium Chloride 100 ML IVPB SCH (00:32)
[2019-08-19] MEDS: 0.9 % Sodium Chloride 1,000 ML IVC SCH ×2 (03:50→17:30)
[2019-08-19] MEDS: *HR* Heparin 5,000 UNIT/ML VIAL SQ SCH ×2 (05:29→17:28)
[2019-08-19 06:18] LABS: Basophils % 0.2 %; Hematocrit 37.2 % (37.5-50.1); Hemoglobin 13.4 g/dL (12.9-16.9); Immature Granulocytes % 0.4 % (0-4); Lymphocytes # 1.4 K/mcL (0.6-4.6); Lymphocytes % 9.4 %; Mean Corpuscular Volume 91.6 fL (83.0-100.0); Mean Platelet Volume 9.5 fL (9.4-12.4); Monocytes # 1.2 K/mcL (0.0-1.3); Monocytes % 7.7 %; Neutrophils # 12.7 K/mcL (1.6-8.9); Platelet Count 148 K/mcL (140-400); Red Blood Count 4.06 M/mcL (4.19-5.50); Red Cell Distribution Width 13.9 % (11.5-14.5); Segmented Neutrophils % 82.3 %; White Blood Count 15.4 K/mcL (4.3-11.1)
[2019-08-19] MEDS: Pantoprazole 40 MG VIAL IVP SCH (08:30)
[2019-08-19] MEDS: Morphine Sulfate Oral CONC 10 MG/0.5 ML ORAL.SYG SL PRN ×2 (11:26→19:16)
[2019-08-20] MEDS: *HR* Metoprolol 5 MG/5 ML VIAL IVP SCH ×4 (00:21→17:55)
[2019-08-20] MEDS: 0.9 % Sodium Chloride 1,000 ML IVC SCH ×2 (00:54→13:27)
[2019-08-20 05:23] LABS: Basophils # 0.1 K/mcL (0.0-0.2); Basophils % 0.3 %; Eosinophils % 0.1 %; Hematocrit 35.5 % (37.5-50.1); Immature Granulocytes % 0.8 % (0-4); Lymphocytes # 1.4 K/mcL (0.6-4.6); Mean Corpuscular HGB Conc 36.6 g/dL (31.6-35.5); Mean Corpuscular Hemoglobin 33.3 pg (28.0-33.3); Mean Platelet Volume 9.9 fL (9.4-12.4); Monocytes % 6.7 %; Neutrophils # 12.9 K/mcL (1.6-8.9); Platelet Count 118 K/mcL (140-400); Red Cell Distribution Width 13.9 % (11.5-14.5); Segmented Neutrophils % 83.1 %; White Blood Count 15.5 K/mcL (4.3-11.1)
[2019-08-20] MEDS: *HR* Heparin 5,000 UNIT/ML VIAL SQ SCH ×2 (05:38→17:55)
[2019-08-20 05:43] LABS: BUN/Creatinine Ratio 21 (6-26); Blood Urea Nitrogen 17 mg/dL (8-23); Calcium 8.7 mg/dL (8.6-10.3); Carbon Dioxide 19 mEq/L (23-29); Chloride 110 mEq/L (98-107); Glucose 203 mg/dL (70-105); Osmolality,Calculated 297 (280-300); Potassium 3.9 mEq/L (3.5-5.1); Sodium 140 mEq/L (136-145); eGFR For African Americans > 60 (> 60); eGFR For Non-African Americans > 60 (> 60)
[2019-08-20] MEDS ORDERED: D5% in Water 1,000 ML IVC PRN (07:22)
[2019-08-20] MEDS ORDERED: Dextrose Gel 15 GM/37.5 ML TUBE PO PRN ×2 (07:22)
[2019-08-20] MEDS ORDERED: *HR* Dextrose 50 % in Water (Syg) 50 ML SYRINGE IVP PRN (07:22)
[2019-08-20] MEDS: Pantoprazole 40 MG VIAL IVP SCH (08:02)
[2019-08-20] MEDS: Insulin LISPRO 300 UNITS/3 ML VIAL SQ SCH ×2 (13:29→17:51)
[2019-08-20] MEDS: *HR* LORazepam 2 MG/ML VIAL IVP PRN ×2 (16:10→22:54)
[2019-08-21] MEDS: *HR* Metoprolol 5 MG/5 ML VIAL IVP SCH ×5 (01:21→23:40)
[2019-08-21] MEDS: 0.9 % Sodium Chloride 1,000 ML IVC SCH ×3 (01:21→13:36)
[2019-08-21] MEDS: Insulin LISPRO 300 UNITS/3 ML VIAL SQ SCH ×5 (01:22→23:41)
[2019-08-21] MEDS: *HR* LORazepam 2 MG/ML VIAL IVP PRN ×2 (05:09→11:40)
[2019-08-21] MEDS: *HR* Heparin 5,000 UNIT/ML VIAL SQ SCH ×2 (05:53→19:10)
[2019-08-21 07:41] LABS: Basophils # 0.1 K/mcL (0.0-0.2); Basophils % 0.4 %; Eosinophils # 0.1 K/mcL (0.0-0.6); Eosinophils % 0.5 %; Hemoglobin 11.7 g/dL (12.9-16.9); Immature Granulocytes % 0.4 % (0-4); Lymphocytes # 1.6 K/mcL (0.6-4.6); Lymphocytes % 10.8 %; Mean Corpuscular HGB Conc 34.4 g/dL (31.6-35.5); Mean Corpuscular Hemoglobin 32.8 pg (28.0-33.3); Mean Corpuscular Volume 95.2 fL (83.0-100.0); Mean Platelet Volume 9.4 fL (9.4-12.4); Monocytes # 1.2 K/mcL (0.0-1.3); Neutrophils # 12.2 K/mcL (1.6-8.9); Platelet Count 119 K/mcL (140-400); Red Blood Count 3.57 M/mcL (4.19-5.50); Red Cell Distribution Width 13.5 % (11.5-14.5); Segmented Neutrophils % 79.9 %; White Blood Count 15.2 K/mcL (4.3-11.1)
[2019-08-21 08:00] LABS: BUN/Creatinine Ratio 17 (6-26); Blood Urea Nitrogen 14 mg/dL (8-23); Calcium 8.3 mg/dL (8.6-10.3); Carbon Dioxide 22 mEq/L (23-29); Chloride 107 mEq/L (98-107); Glucose 151 mg/dL (70-105); Osmolality,Calculated 289 (280-300); Potassium 3.4 mEq/L (3.5-5.1); Sodium 138 mEq/L (136-145); eGFR For African Americans > 60 (> 60); eGFR For Non-African Americans > 60 (> 60)
[2019-08-21] MEDS: Pantoprazole 40 MG VIAL IVP SCH (09:08)
[2019-08-21] MEDS ORDERED: Potassium Chloride 40 MEQ, Lidocaine 1% 2 ML in 0.9 % Sodium Chloride 500 ML IVPB ONE (15:42)
[2019-08-22] MEDS: 0.9 % Sodium Chloride 1,000 ML IVC SCH ×3 (05:45→21:35)
[2019-08-22] MEDS: *HR* Heparin 5,000 UNIT/ML VIAL SQ SCH ×2 (05:46→17:42)
[2019-08-22] MEDS: *HR* Metoprolol 5 MG/5 ML VIAL IVP SCH ×3 (05:46→20:04)
[2019-08-22] MEDS: Insulin LISPRO 300 UNITS/3 ML VIAL SQ SCH ×4 (05:50→21:46)
[2019-08-22] MEDS: Pantoprazole 40 MG VIAL IVP SCH (09:43)
[2019-08-22 10:28] LABS: Basophils % 0.4 %; Eosinophils # 0.2 K/mcL (0.0-0.6); Eosinophils % 2.7 %; Hematocrit 30.7 % (37.5-50.1); Hemoglobin 11.2 g/dL (12.9-16.9); Immature Granulocytes % 0.7 % (0-4); Lymphocytes # 1.3 K/mcL (0.6-4.6); Lymphocytes % 16.8 %; Mean Corpuscular HGB Conc 36.5 g/dL (31.6-35.5); Mean Corpuscular Hemoglobin 33.6 pg (28.0-33.3); Mean Corpuscular Volume 92.2 fL (83.0-100.0); Mean Platelet Volume 9.3 fL (9.4-12.4); Monocytes # 0.7 K/mcL (0.0-1.3); Monocytes % 9.7 %; Platelet Count 124 K/mcL (140-400); Red Blood Count 3.33 M/mcL (4.19-5.50); Segmented Neutrophils % 69.7 %
[2019-08-22 10:31] LABS: Neutrophils # 5.2 K/mcL (1.6-8.9); White Blood Count 7.5 K/mcL (4.3-11.1)
[2019-08-22 10:43] LABS: BUN/Creatinine Ratio 23 (6-26); Blood Urea Nitrogen 19 mg/dL (8-23); Carbon Dioxide 23 mEq/L (23-29); Chloride 108 mEq/L (98-107); Glucose 134 mg/dL (70-105); Magnesium 1.1 mg/dL (1.6-2.6); Osmolality,Calculated 298 (280-300); Phosphorous 2.7 mg/dL (2.7-4.5); Potassium 3.5 mEq/L (3.5-5.1); Sodium 142 mEq/L (136-145); eGFR For African Americans > 60 (> 60); eGFR For Non-African Americans > 60 (> 60)
[2019-08-22] MEDS: Mirtazapine 15 MG TABLET PO SCH (21:45)
[2019-08-22] MEDS: rOPINIRole 1 MG TABLET PO SCH (21:45)
[2019-08-22] MEDS: Gabapentin 300 MG CAPSULE PO SCH (21:45)
[2019-08-23] MEDS: *HR* Metoprolol 5 MG/5 ML VIAL IVP SCH ×2 (00:15→06:15)
[2019-08-23 04:54] LABS: Basophils % 0.5 %; Eosinophils # 0.2 K/mcL (0.0-0.6); Eosinophils % 3.4 %; Hematocrit 29.5 % (37.5-50.1); Hemoglobin 10.6 g/dL (12.9-16.9); Immature Granulocytes % 0.7 % (0-4); Lymphocytes # 1.3 K/mcL (0.6-4.6); Lymphocytes % 21.4 %; Mean Corpuscular HGB Conc 35.9 g/dL (31.6-35.5); Mean Corpuscular Hemoglobin 32.7 pg (28.0-33.3); Mean Platelet Volume 9.2 fL (9.4-12.4); Monocytes # 0.7 K/mcL (0.0-1.3); Monocytes % 11.1 %; Neutrophils # 3.7 K/mcL (1.6-8.9); Platelet Count 130 K/mcL (140-400); Red Blood Count 3.24 M/mcL (4.19-5.50); Red Cell Distribution Width 13.6 % (11.5-14.5); Segmented Neutrophils % 62.9 %; White Blood Count 5.8 K/mcL (4.3-11.1)
[2019-08-23 05:31] LABS: BUN/Creatinine Ratio 20 (6-26); Blood Urea Nitrogen 14 mg/dL (8-23); Calcium 7.8 mg/dL (8.6-10.3); Carbon Dioxide 22 mEq/L (23-29); Chloride 108 mEq/L (98-107); Glucose 152 mg/dL (70-105); Osmolality,Calculated 287 (280-300); Phosphorous 2.9 mg/dL (2.7-4.5); Potassium 3.3 mEq/L (3.5-5.1); Sodium 137 mEq/L (136-145); eGFR For African Americans > 60 (> 60); eGFR For Non-African Americans > 60 (> 60)
[2019-08-23] MEDS: 0.9 % Sodium Chloride 1,000 ML IVC SCH (06:15)
[2019-08-23] MEDS: *HR* Heparin 5,000 UNIT/ML VIAL SQ SCH ×2 (06:17→17:32)
[2019-08-23] MEDS: Aspirin 81 MG TAB.CHEW PO SCH (09:08)
[2019-08-23] MEDS: Lisinopril 20 MG TABLET PO SCH (09:08)
[2019-08-23] MEDS: Gabapentin 300 MG CAPSULE PO SCH ×3 (09:08→20:03)
[2019-08-23] MEDS: Insulin LISPRO 300 UNITS/3 ML VIAL SQ SCH ×4 (09:09→21:26)
[2019-08-23] MEDS: Pantoprazole 40 MG VIAL IVP SCH (09:20)
[2019-08-23] MEDS: *HR* OxyCODONE/APAP 5/325 TABLET PO PRN (12:17)
[2019-08-23] MEDS ORDERED: Potassium Chloride Elixir 20 MEQ/15 ML UDC PO ONE (16:00)
[2019-08-23] MEDS: Magnesium Oxide 400 MG TABLET PO SCH (20:03)
[2019-08-23] MEDS: Mirtazapine 15 MG TABLET PO SCH (20:03)
[2019-08-23] MEDS: rOPINIRole 1 MG TABLET PO SCH (20:03)
[2019-08-24] MEDS: *HR* Heparin 5,000 UNIT/ML VIAL SQ SCH ×2 (05:35→17:59)
[2019-08-24] MEDS: Magnesium Oxide 400 MG TABLET PO SCH (08:44)
[2019-08-24] MEDS: Aspirin 81 MG TAB.CHEW PO SCH (08:44)
[2019-08-24] MEDS: *HR* OxyCODONE/APAP 5/325 TABLET PO PRN (08:45)
[2019-08-24] MEDS: Insulin LISPRO 300 UNITS/3 ML VIAL SQ SCH ×4 (08:45→21:44)
[2019-08-24] MEDS: Pantoprazole 40 MG VIAL IVP SCH (08:53)
[2019-08-24] MEDS: Lisinopril 20 MG TABLET PO SCH (08:53)
[2019-08-24] MEDS: Gabapentin 300 MG CAPSULE PO SCH ×3 (08:55→21:41)
[2019-08-24] MEDS: Mirtazapine 15 MG TABLET PO SCH (21:42)
[2019-08-24] MEDS: rOPINIRole 1 MG TABLET PO SCH (21:43)
[2019-08-25] MEDS: *HR* Heparin 5,000 UNIT/ML VIAL SQ SCH (06:27)
[2019-08-25 06:56] VITALS: BP 128/79
[2019-08-25] MEDS: Lisinopril 20 MG TABLET PO SCH (09:59)
[2019-08-25] MEDS: Aspirin 81 MG TAB.CHEW PO SCH (10:00)
[2019-08-25] MEDS: Insulin LISPRO 300 UNITS/3 ML VIAL SQ SCH (10:01)
[2019-08-25] MEDS: Gabapentin 300 MG CAPSULE PO SCH (10:17)
[2019-08-25] MEDS: Pantoprazole 40 MG VIAL IVP SCH (10:18)
== END 2019-08-25 13:25 | DRG 328 ==
LOC: SAMDAY 06:06 → 3ANU 11:38
PROVIDERS: ADMIT Surgery; ATTEND Surgery

== ENCOUNTER 2019-12-06 13:35 | Inpatient (IN) ==
[2019-12-06 14:09] LABS: Basophils % 0.2 %; Eosinophils # 0.1 K/mcL (0.0-0.6); Eosinophils % 1.1 %; Hematocrit 38.2 % (37.5-50.1); Hemoglobin 13.2 g/dL (12.9-16.9); Immature Granulocytes % 0.3 % (0-4); Immature Platelets 1.8 % (1.1-6.1); Lymphocytes % 23.1 %; Mean Corpuscular HGB Conc 34.6 g/dL (31.6-35.5); Mean Corpuscular Hemoglobin 31.4 pg (28.0-33.3); Mean Corpuscular Volume 90.7 fL (83.0-100.0); Mean Platelet Volume 9.5 fL (9.4-12.4); Monocytes # 0.9 K/mcL (0.0-1.3); Monocytes % 9.8 %; Neutrophils # 5.7 K/mcL (1.6-8.9); Platelet Count 123 K/mcL (140-400); Red Blood Count 4.21 M/mcL (4.19-5.50); Segmented Neutrophils % 65.5 %; White Blood Count 8.8 K/mcL (4.3-11.1)
[2019-12-06 14:26] LABS: Alanine Aminotransferase 23 Units/L (7-52); Albumin 3.9 g/dL (3.5-5.7); Albumin/Globulin Ratio 1.4 (1.1-2.2); Alkaline Phosphatase 61 Units/L (34-104); Aspartate Amino Transferase 25 Units/L (13-39); BUN/Creatinine Ratio 20 (6-26); Bilirubin,Total 0.7 mg/dL (0.3-1.0); Blood Urea Nitrogen 18 mg/dL (8-23); Calcium 8.9 mg/dL (8.6-10.3); Carbon Dioxide 28 mEq/L (23-29); Chloride 106 mEq/L (98-107); Globulin 2.8 g/dL (2.4-3.5); Glucose 70 mg/dL (70-105); Osmolality,Calculated 294 (280-300); Potassium 3.6 mEq/L (3.5-5.1); Sodium 142 mEq/L (136-145); Total Protein 6.7 g/dL (6.4-8.9); eGFR For African Americans > 60 (> 60); eGFR For Non-African Americans > 60 (> 60)
[2019-12-06 14:28] LABS: INR 1.2; Prothrombin Time 13.4 Seconds (9.4-12.1)
[2019-12-06] MEDS ORDERED: *HR* FentaNYL (PF) 100 MCG/2 ML VIAL IVP ONE (14:37)
[2019-12-06] MEDS ORDERED: Naloxone 0.4 MG/ML INJ IVP PRN (17:33)
[2019-12-06] MEDS ORDERED: Ondansetron 4 MG/2 ML VIAL IVP PRN (17:33)
[2019-12-06] MEDS ORDERED: D5% in Water 1,000 ML IVC PRN (17:41)
[2019-12-06] MEDS ORDERED: Dextrose Gel 15 GM/37.5 ML TUBE PO PRN ×2 (17:41)
[2019-12-06] MEDS ORDERED: *HR* Dextrose 50 % in Water (Syg) 50 ML SYRINGE IVP PRN (17:41)
[2019-12-06] MEDS ORDERED: *HR* OxyCODONE/APAP 5/325 TABLET PO PRN (17:47)
[2019-12-06 18:14] LABS: Estimated Average Glucose 131 mg/dl
[2019-12-06] MEDS ORDERED: *HR* Heparin 5,000 UNIT/ML VIAL SQ SCH (18:15)
[2019-12-06] MEDS ORDERED: Ropivacaine/PF 0.5% 30 ML VIAL ONE (19:51)
[2019-12-06] MEDS ORDERED: ROPIVACAINE/PF/NS 0.25% 1 EACH SYRINGE INTRAART ONE (19:51)
[2019-12-06] MEDS ORDERED: *HR* Midazolam HCl 2 MG/2 ML VIAL ONE ×2 (19:54→20:27)
[2019-12-06] MEDS ORDERED: *HR* FentaNYL (PF) 100 MCG/2 ML VIAL ONE ×2 (19:54→20:27)
[2019-12-06] MEDS ORDERED: Lidocaine 1% 0 ML ONE (20:23)
[2019-12-06] MEDS ORDERED: Ondansetron 4 MG/2 ML VIAL ONE (20:27)
[2019-12-06] MEDS ORDERED: Dexamethasone 4 MG/ML VIAL ONE (20:27)
[2019-12-06] MEDS ORDERED: Lidocaine -MPF 2% 2 ML VIAL ONE (20:27)
[2019-12-06] MEDS ORDERED: *HR* Propofol 200 MG/20 ML VIAL IVP ONE (20:27)
[2019-12-06] MEDS ORDERED: *HR* Magnesium Sulfate 1 GM/2 ML VIAL ONE (20:33)
[2019-12-06] MEDS ORDERED: *HR* Labetalol 20 MG/4 ML SYRINGE IVP ONE (20:35)
[2019-12-06] MEDS ORDERED: *HR* PHENYLEPHRINE 1,000 MCG/10 ML SYRINGE IVP ONE ×2 (20:42→21:22)
[2019-12-06] MEDS ORDERED: NON-FORMULARY MEDICATION 1 EACH EACH (Omega-3/Dha/Epa/Fish Oil [Fish Oil 1,000 Mg Softgel] PO SCH (21:00)
[2019-12-06] MEDS ORDERED: Gabapentin 300 MG CAPSULE PO SCH (21:00)
[2019-12-06] MEDS ORDERED: Insulin DETEMIR 100 UNIT/ML X5UNITS SQ SCH (21:00)
[2019-12-06] MEDS ORDERED: Mirtazapine 15 MG TABLET PO SCH (21:00)
[2019-12-06] MEDS ORDERED: CALCIPOTRIENE 0.005% TP SCH (21:00)
[2019-12-06] MEDS ORDERED: rOPINIRole 0.25 MG TABLET PO SCH (21:00)
[2019-12-06] MEDS ORDERED: Capsaicin 0.025% 60 GM TUBE TP SCH (21:00)
[2019-12-06] MEDS ORDERED: ceFAZolin 2,000 MG in Water for inj. (sterile) 20 ML IVP ONE (21:11)
[2019-12-06] MEDS ORDERED: *HR* OxyCODONE Immed Rel 5 MG TABLET PO PRN (22:44)
[2019-12-06] MEDS ORDERED: *HR* Promethazine 25 MG/ML VIAL IVP PRN (22:44)
[2019-12-06] MEDS ORDERED: *HR* HYDROmorphone 2 MG TABLET PO PRN (22:44)
[2019-12-06] MEDS ORDERED: Acetaminophen IV 1,000 MG/100 ML INFUS..BTL IVPB ONE (22:44)
[2019-12-06] MEDS ORDERED: *HR* Labetalol 20 MG/4 ML SYRINGE IVP PRN (22:44)
[2019-12-06] MEDS ORDERED: *HR* Dextrose 50 % in Water (Vial) 50 ML VIAL IVP ONE (22:44)
[2019-12-06] MEDS ORDERED: *HR* Dextrose 50 % in Water (Syg) 50 ML SYRINGE IVP ONE (22:45)
[2019-12-06] MEDS ORDERED: Haloperidol Lactate 5 MG/ML VIAL ONE (23:11)
[2019-12-06] MEDS: Haloperidol Lactate 5 MG/ML VIAL IVP PRN ×4 (23:14→23:31)
[2019-12-07] MEDS ORDERED: *HR* Dextrose 50 % in Water (Syg) 50 ML SYRINGE IVP PRN (00:12)
[2019-12-07] MEDS ORDERED: Naloxone 0.4 MG/ML INJ IVP PRN (00:12)
[2019-12-07] MEDS ORDERED: Dextrose Gel 15 GM/37.5 ML TUBE PO PRN ×2 (00:12)
[2019-12-07] MEDS ORDERED: D5% in Water 1,000 ML IVC PRN (01:56)
[2019-12-07] MEDS ORDERED: Ondansetron 4 MG/2 ML VIAL IVP PRN (01:59)
[2019-12-07] MEDS ORDERED: Haloperidol Lactate 5 MG/ML VIAL IVP ONE (04:12)
[2019-12-07] MEDS: *HR* Heparin 5,000 UNIT/ML VIAL SQ SCH ×2 (04:34→17:17)
[2019-12-07 04:42] LABS: Basophils % 0.2 %; Hematocrit 35.9 % (37.5-50.1); Hemoglobin 12.6 g/dL (12.9-16.9); Immature Granulocytes % 0.4 % (0-4); Lymphocytes # 1.1 K/mcL (0.6-4.6); Lymphocytes % 14.1 %; Mean Corpuscular HGB Conc 35.1 g/dL (31.6-35.5); Mean Corpuscular Hemoglobin 31.9 pg (28.0-33.3); Mean Corpuscular Volume 90.9 fL (83.0-100.0); Mean Platelet Volume 9.5 fL (9.4-12.4); Monocytes # 0.6 K/mcL (0.0-1.3); Neutrophils # 6.3 K/mcL (1.6-8.9); Platelet Count 114 K/mcL (140-400); Red Blood Count 3.95 M/mcL (4.19-5.50); Red Cell Distribution Width 13.9 % (11.5-14.5); Segmented Neutrophils % 78.3 %
[2019-12-07 05:07] LABS: BUN/Creatinine Ratio 16 (6-26); Blood Urea Nitrogen 17 mg/dL (8-23); Calcium 8.9 mg/dL (8.6-10.3); Carbon Dioxide 24 mEq/L (23-29); Chloride 101 mEq/L (98-107); Glucose 353 mg/dL (70-105); Magnesium 1.7 mg/dL (1.6-2.6); Osmolality,Calculated 296 (280-300); Phosphorous 3.4 mg/dL (2.7-4.5); Potassium 4.3 mEq/L (3.5-5.1); Sodium 135 mEq/L (136-145); eGFR For African Americans > 60 (> 60); eGFR For Non-African Americans > 60 (> 60)
[2019-12-07] MEDS ORDERED: Insulin LISPRO 300 UNITS/3 ML VIAL SQ SCH (07:30)
[2019-12-07] MEDS ORDERED: CALCIPOTRIENE 0.005% TP SCH (09:00)
[2019-12-07] MEDS ORDERED: Cholecalciferol (D-3) 1,000 UNIT (25MCG) TABLET PO SCH (09:00)
[2019-12-07] MEDS ORDERED: lisinopriL 20 MG TABLET PO SCH (09:00)
[2019-12-07] MEDS: lisinopriL 20 MG TABLET PO SCH (09:10)
[2019-12-07] MEDS: Cholecalciferol (D-3) 1,000 UNIT (25MCG) TABLET PO SCH (09:10)
[2019-12-07] MEDS: Insulin LISPRO 300 UNITS/3 ML VIAL SQ SCH ×3 (09:11→17:16)
[2019-12-07] MEDS: Capsaicin 0.025% 60 GM TUBE TP SCH ×3 (11:33→22:16)
[2019-12-07] MEDS: *HR* OxyCODONE/APAP 5/325 TABLET PO PRN ×2 (17:15→23:38)
[2019-12-07] MEDS: rOPINIRole 0.25 MG TABLET PO SCH (20:44)
[2019-12-07] MEDS: Mirtazapine 15 MG TABLET PO SCH (20:45)
[2019-12-07] MEDS: Gabapentin 300 MG CAPSULE PO SCH (20:45)
[2019-12-07] MEDS: Insulin DETEMIR 100 UNIT/ML X5UNITS SQ SCH (20:45)
[2019-12-08 05:37] LABS: Basophils % 0.4 %; Eosinophils # 0.2 K/mcL (0.0-0.6); Eosinophils % 1.8 %; Hematocrit 34.5 % (37.5-50.1); Hemoglobin 12.1 g/dL (12.9-16.9); Immature Granulocytes % 0.3 % (0-4); Lymphocytes # 2.7 K/mcL (0.6-4.6); Lymphocytes % 28.2 %; Mean Corpuscular HGB Conc 35.1 g/dL (31.6-35.5); Mean Corpuscular Hemoglobin 31.6 pg (28.0-33.3); Mean Corpuscular Volume 90.1 fL (83.0-100.0); Mean Platelet Volume 9.1 fL (9.4-12.4); Monocytes # 1.1 K/mcL (0.0-1.3); Neutrophils # 5.6 K/mcL (1.6-8.9); Platelet Count 120 K/mcL (140-400); Red Blood Count 3.83 M/mcL (4.19-5.50); Red Cell Distribution Width 13.8 % (11.5-14.5); Segmented Neutrophils % 58.3 %; White Blood Count 9.6 K/mcL (4.3-11.1)
[2019-12-08] MEDS: *HR* Heparin 5,000 UNIT/ML VIAL SQ SCH ×2 (05:40→17:46)
[2019-12-08 05:56] LABS: BUN/Creatinine Ratio 21 (6-26); Blood Urea Nitrogen 19 mg/dL (8-23); Carbon Dioxide 24 mEq/L (23-29); Chloride 104 mEq/L (98-107); Glucose 168 mg/dL (70-105); Magnesium 1.5 mg/dL (1.6-2.6); Osmolality,Calculated 290 (280-300); Phosphorous 2.6 mg/dL (2.7-4.5); Potassium 3.9 mEq/L (3.5-5.1); Sodium 137 mEq/L (136-145); eGFR For African Americans > 60 (> 60); eGFR For Non-African Americans > 60 (> 60)
[2019-12-08] MEDS: Insulin LISPRO 300 UNITS/3 ML VIAL SQ SCH ×3 (09:09→16:19)
[2019-12-08] MEDS: Cholecalciferol (D-3) 1,000 UNIT (25MCG) TABLET PO SCH (09:10)
[2019-12-08] MEDS: lisinopriL 20 MG TABLET PO SCH (09:10)
[2019-12-08] MEDS: Capsaicin 0.025% 60 GM TUBE TP SCH ×3 (09:11→21:50)
[2019-12-08] MEDS: Gabapentin 300 MG CAPSULE PO SCH (21:47)
[2019-12-08] MEDS: Mirtazapine 15 MG TABLET PO SCH (21:48)
[2019-12-08] MEDS: Insulin DETEMIR 100 UNIT/ML X5UNITS SQ SCH (21:48)
[2019-12-08] MEDS: rOPINIRole 0.25 MG TABLET PO SCH (21:49)
[2019-12-09 05:53] LABS: Basophils % 0.5 %; Eosinophils # 0.2 K/mcL (0.0-0.6); Eosinophils % 2.4 %; Hematocrit 32.8 % (37.5-50.1); Hemoglobin 11.2 g/dL (12.9-16.9); Immature Granulocytes % 0.3 % (0-4); Lymphocytes # 2.8 K/mcL (0.6-4.6); Lymphocytes % 31.5 %; Mean Corpuscular HGB Conc 34.1 g/dL (31.6-35.5); Mean Corpuscular Hemoglobin 31.3 pg (28.0-33.3); Mean Corpuscular Volume 91.6 fL (83.0-100.0); Mean Platelet Volume 9.5 fL (9.4-12.4); Monocytes # 1.2 K/mcL (0.0-1.3); Monocytes % 13.1 %; Neutrophils # 4.6 K/mcL (1.6-8.9); Platelet Count 130 K/mcL (140-400); Red Blood Count 3.58 M/mcL (4.19-5.50); Red Cell Distribution Width 13.9 % (11.5-14.5); Segmented Neutrophils % 52.2 %; White Blood Count 8.8 K/mcL (4.3-11.1)
[2019-12-09] MEDS: *HR* Heparin 5,000 UNIT/ML VIAL SQ SCH (05:53)
[2019-12-09 06:08] LABS: BUN/Creatinine Ratio 22 (6-26); Blood Urea Nitrogen 17 mg/dL (8-23); Calcium 8.6 mg/dL (8.6-10.3); Carbon Dioxide 26 mEq/L (23-29); Chloride 104 mEq/L (98-107); Glucose 122 mg/dL (70-105); Magnesium 1.8 mg/dL (1.6-2.6); Osmolality,Calculated 291 (280-300); Phosphorous 3.1 mg/dL (2.7-4.5); Potassium 3.5 mEq/L (3.5-5.1); Sodium 139 mEq/L (136-145); eGFR For African Americans > 60 (> 60); eGFR For Non-African Americans > 60 (> 60)
[2019-12-09] MEDS: Insulin LISPRO 300 UNITS/3 ML VIAL SQ SCH ×3 (07:58→17:25)
[2019-12-09] MEDS: lisinopriL 20 MG TABLET PO SCH (08:46)
[2019-12-09] MEDS: Capsaicin 0.025% 60 GM TUBE TP SCH ×3 (08:47→21:32)
[2019-12-09] MEDS: Cholecalciferol (D-3) 1,000 UNIT (25MCG) TABLET PO SCH (08:47)
[2019-12-09] MEDS ORDERED: *HR* Rivaroxaban 10 MG TABLET PO SCH (17:00)
[2019-12-09] MEDS: Gabapentin 300 MG CAPSULE PO SCH (21:32)
[2019-12-09] MEDS: Mirtazapine 15 MG TABLET PO SCH (21:32)
[2019-12-09] MEDS: rOPINIRole 0.25 MG TABLET PO SCH (21:32)
[2019-12-09] MEDS: Insulin DETEMIR 100 UNIT/ML X5UNITS SQ SCH (21:32)
[2019-12-10 03:07] LABS: Basophils # 0.1 K/mcL (0.0-0.2); Basophils % 0.5 %; Eosinophils # 0.2 K/mcL (0.0-0.6); Eosinophils % 2.2 %; Hematocrit 35.1 % (37.5-50.1); Hemoglobin 12.1 g/dL (12.9-16.9); Immature Granulocytes % 0.3 % (0-4); Lymphocytes # 3.2 K/mcL (0.6-4.6); Lymphocytes % 33.3 %; Mean Corpuscular HGB Conc 34.5 g/dL (31.6-35.5); Mean Corpuscular Hemoglobin 31.3 pg (28.0-33.3); Mean Corpuscular Volume 90.9 fL (83.0-100.0); Mean Platelet Volume 9.4 fL (9.4-12.4); Monocytes % 10.9 %; Platelet Count 150 K/mcL (140-400); Red Blood Count 3.86 M/mcL (4.19-5.50); Red Cell Distribution Width 14.1 % (11.5-14.5); Segmented Neutrophils % 52.8 %; White Blood Count 9.5 K/mcL (4.3-11.1)
[2019-12-10 03:26] LABS: BUN/Creatinine Ratio 29 (6-26); Blood Urea Nitrogen 28 mg/dL (8-23); Calcium 8.8 mg/dL (8.6-10.3); Carbon Dioxide 22 mEq/L (23-29); Chloride 106 mEq/L (98-107); Glucose 164 mg/dL (70-105); Magnesium 1.8 mg/dL (1.6-2.6); Osmolality,Calculated 291 (280-300); Phosphorous 3.2 mg/dL (2.7-4.5); Potassium 3.7 mEq/L (3.5-5.1); Sodium 136 mEq/L (136-145); eGFR For African Americans > 60 (> 60); eGFR For Non-African Americans > 60 (> 60)
[2019-12-10 07:24] VITALS: BP 142/76
[2019-12-10] MEDS: Capsaicin 0.025% 60 GM TUBE TP SCH (08:41)
[2019-12-10] MEDS: Insulin LISPRO 300 UNITS/3 ML VIAL SQ SCH (08:41)
[2019-12-10] MEDS: Cholecalciferol (D-3) 1,000 UNIT (25MCG) TABLET PO SCH (08:41)
[2019-12-10] MEDS: lisinopriL 20 MG TABLET PO SCH (08:42)
== END 2019-12-10 11:19 | DRG 494 ==
LOC: 3ANU 13:35 → EMEROOARM 13:35 → SUATTDRO 17:47 → 3ANU 19:14
PROVIDERS: ADMIT Family Medicine; ATTEND Internal Medicine

== ENCOUNTER 2021-05-31 21:03 | Inpatient (IN) ==
[2021-06-01] MEDS ORDERED: MOM Conc 10 ML UD.LIQ PO PRN (08:58)
[2021-06-01] MEDS ORDERED: Melatonin 3 MG TABLET PO PRN (08:58)
[2021-06-01] MEDS ORDERED: Ondansetron 4 MG/2 ML VIAL IVP PRN (08:58)
[2021-06-01] MEDS ORDERED: Povidone-Iodine 45 ML, Sodium Chloride IRRigation 1,000 ML IR ONE (09:45)
[2021-06-01] MEDS ORDERED: TOTAL JOINT MIXTURE (100ML) INTRAART ONE (09:45)
[2021-06-01] MEDS ORDERED: Dextrose Gel 15 GM/37.5 ML TUBE PO PRN ×3 (10:06→22:16)
[2021-06-01] MEDS ORDERED: D5% in Water 1,000 ML IVC PRN (10:06)
[2021-06-01] MEDS ORDERED: *HR* Dextrose 50 % in Water (Syg) 50 ML SYRINGE IVP PRN (10:06)
[2021-06-01] MEDS ORDERED: Perflutren Lipid Microsphere 1.3 ML in 0.9 % Sodium Chloride 8.7 ML IVP PRN (10:15)
[2021-06-01] MEDS: Acetaminophen IV 1,000 MG/100 ML BAG IVPB SCH ×2 (11:02→18:33)
[2021-06-01 11:15] LABS: Basophils # 0.1 K/mcL (0.0-0.2); Basophils % 0.4 %; Eosinophils # 0.1 K/mcL (0.0-0.6); Eosinophils % 0.7 %; Hematocrit 38.5 % (37.5-50.1); Hemoglobin 13.2 g/dL (12.9-16.9); Immature Granulocytes % 0.3 % (0-4); Lymphocytes # 1.3 K/mcL (0.6-4.6); Lymphocytes % 8.8 %; Mean Corpuscular HGB Conc 34.3 g/dL (31.6-35.5); Mean Corpuscular Volume 93.4 fL (83.0-100.0); Mean Platelet Volume 9.2 fL (9.4-12.4); Monocytes # 1.1 K/mcL (0.0-1.3); Monocytes % 7.7 %; Neutrophils # 12.1 K/mcL (1.6-8.9); Platelet Count 162 K/mcL (140-400); Red Blood Count 4.12 M/mcL (4.19-5.50); Red Cell Distribution Width 13.6 % (11.5-14.5); Segmented Neutrophils % 82.1 %; White Blood Count 14.7 K/mcL (4.3-11.1)
[2021-06-01 11:36] LABS: BUN/Creatinine Ratio 32 (6-26); Blood Urea Nitrogen 24 mg/dL (8-23); Calcium 9.8 mg/dL (8.6-10.3); Carbon Dioxide 23 mEq/L (23-29); Chloride 103 mEq/L (98-107); Glucose 184 mg/dL (70-105); Magnesium 1.2 mg/dL (1.6-2.6); Osmolality,Calculated 289 (280-300); Potassium 4.6 mEq/L (3.5-5.1); Sodium 135 mEq/L (136-145); eGFR For African Americans > 60 (> 60); eGFR For Non-African Americans > 60 (> 60)
[2021-06-01 11:48] LABS: Thyroid Stimulating Hormone 2.244 mcIU/mL (0.340-5.600)
[2021-06-01] MEDS ORDERED: Insulin LISPRO 300 UNITS/3 ML VIAL SUBQ SCH (12:00)
[2021-06-01 12:51] LABS: Troponin I 0.04 ng/mL (< 0.04)
[2021-06-01 16:09] LABS: Bacteria,Urine Few per hpf (None-Few); Bilirubin,Urine Negative (Negative); Blood,Urine Trace (Negative); Clarity,Urine Clear (Clear); Color,Urine Light-Orange (Yellow); Glucose,Urine (UA) Normal (Normal); Ketones,Urine Negative (Negative); Leukocyte Esterase,Urine Small (Negative); Mucus,Urine Few per lpf (None-Few); Nitrite,Urine Negative (Negative); Protein,Urine 70 mg/dL (Neg-Trace); Specific Gravity,Urine > 1.030 (1.010-1.025); Squamous Epithelial Cell,Urine Few per hpf (None-Few); Urobilinogen,Urine Normal (Normal); WBC,Urine 15-30 per hpf (0-3)
[2021-06-01] MEDS: Insulin LISPRO 300 UNITS/3 ML VIAL SUBQ SCH ×2 (17:31→21:25)
[2021-06-01] MEDS: cefTRIAXone 1,000 MG in 0.9 % Sodium Chloride Mini Bag 100 ML IVPB SCH (21:25)
[2021-06-01] MEDS ORDERED: FluocinoNIDE 0.05% CRM 15 GM TUBE TP PRN (23:17)
[2021-06-02] MEDS: Mirtazapine 15 MG TABLET PO SCH ×2 (00:40→21:18)
[2021-06-02] MEDS: rOPINIRole 0.25 MG TABLET PO SCH ×2 (00:40→21:38)
[2021-06-02] MEDS: Gabapentin 300 MG CAPSULE PO SCH ×2 (00:40→21:18)
[2021-06-02] MEDS: Acetaminophen IV 1,000 MG/100 ML BAG IVPB SCH ×4 (02:49→18:33)
[2021-06-02 05:12] LABS: Basophils # 0.1 K/mcL (0.0-0.2); Basophils % 0.4 %; Eosinophils # 0.3 K/mcL (0.0-0.6); Hematocrit 34.9 % (37.5-50.1); Immature Granulocytes % 0.5 % (0-4); Lymphocytes # 1.9 K/mcL (0.6-4.6); Lymphocytes % 12.7 %; Mean Corpuscular HGB Conc 34.4 g/dL (31.6-35.5); Mean Corpuscular Hemoglobin 32.3 pg (28.0-33.3); Mean Corpuscular Volume 93.8 fL (83.0-100.0); Mean Platelet Volume 9.4 fL (9.4-12.4); Monocytes # 1.1 K/mcL (0.0-1.3); Monocytes % 7.1 %; Neutrophils # 11.8 K/mcL (1.6-8.9); Platelet Count 152 K/mcL (140-400); Red Blood Count 3.72 M/mcL (4.19-5.50); Red Cell Distribution Width 13.5 % (11.5-14.5); Segmented Neutrophils % 77.3 %; White Blood Count 15.3 K/mcL (4.3-11.1)
[2021-06-02 05:29] LABS: Chol/HDL Ratio 3.4 (0-4.9)
[2021-06-02 05:31] LABS: BUN/Creatinine Ratio 33 (6-26); Blood Urea Nitrogen 36 mg/dL (8-23); Carbon Dioxide 18 mEq/L (23-29); Chloride 103 mEq/L (98-107); Glucose 174 mg/dL (70-105); Magnesium 1.6 mg/dL (1.6-2.6); Osmolality,Calculated 287 (280-300); Potassium 4.8 mEq/L (3.5-5.1); Sodium 132 mEq/L (136-145); eGFR For African Americans > 60 (> 60); eGFR For Non-African Americans > 60 (> 60)
[2021-06-02 05:45] LABS: Estimated Average Glucose 108 mg/dl; Hemoglobin A1C 5.4 %
[2021-06-02] MEDS ORDERED: 0.9 % Sodium Chloride 500 ML ONE (07:36)
[2021-06-02] MEDS ORDERED: 0.9 % Sodium Chloride 500 ML IVC ONE ×2 (07:40→10:37)
[2021-06-02] MEDS ORDERED: Aspirin Enteric Coated 81 MG Tablet PO SCH (09:00)
[2021-06-02 09:58] LABS: Basophils # 0.1 K/mcL (0.0-0.2); Basophils % 0.5 %; Eosinophils # 0.4 K/mcL (0.0-0.6); Hematocrit 35.2 % (37.5-50.1); Hemoglobin 11.9 g/dL (12.9-16.9); Immature Granulocytes % 0.4 % (0-4); Lymphocytes # 2.2 K/mcL (0.6-4.6); Lymphocytes % 16.8 %; Mean Corpuscular HGB Conc 33.8 g/dL (31.6-35.5); Mean Corpuscular Hemoglobin 32.2 pg (28.0-33.3); Mean Corpuscular Volume 95.4 fL (83.0-100.0); Mean Platelet Volume 9.4 fL (9.4-12.4); Monocytes % 7.8 %; Neutrophils # 9.4 K/mcL (1.6-8.9); Platelet Count 147 K/mcL (140-400); Red Blood Count 3.69 M/mcL (4.19-5.50); Red Cell Distribution Width 13.8 % (11.5-14.5); Segmented Neutrophils % 71.5 %; White Blood Count 13.1 K/mcL (4.3-11.1)
[2021-06-02] MEDS: Aspirin Enteric Coated 81 MG Tablet PO SCH (10:02)
[2021-06-02] MEDS: CALCIPOTRIENE TP SCH ×2 (10:06→23:18)
[2021-06-02] MEDS: Insulin LISPRO 300 UNITS/3 ML VIAL SUBQ SCH ×4 (10:09→21:18)
[2021-06-02 10:17] LABS: Troponin I 0.04 ng/mL (< 0.04)
[2021-06-02 10:26] LABS: BUN/Creatinine Ratio 28 (6-26); Blood Urea Nitrogen 38 mg/dL (8-23); Calcium 8.9 mg/dL (8.6-10.3); Carbon Dioxide 21 mEq/L (23-29); Chloride 103 mEq/L (98-107); Glucose 158 mg/dL (70-105); Osmolality,Calculated 288 (280-300); Potassium 4.9 mEq/L (3.5-5.1); Sodium 133 mEq/L (136-145); eGFR For African Americans > 60 (> 60); eGFR For Non-African Americans 51 (> 60)
[2021-06-02] MEDS ORDERED: 0.9 % Sodium Chloride 1,000 ML ONE (12:30)
[2021-06-02] MEDS ORDERED: 0.9 % Sodium Chloride 1,000 ML IV ONE ×2 (12:41→12:44)
[2021-06-02] MEDS ORDERED: 0.9 % Sodium Chloride 1,000 ML IVC ONE (14:29)
[2021-06-02] MEDS ORDERED: 0.9 % Sodium Chloride 1,000 ML IVC SCH (15:45)
[2021-06-02] MEDS ORDERED: Albumin 25% 25gram/100mL 25 GM/100 ML IV.SOLN IVPB ONE (16:52)
[2021-06-02 17:21] LABS: Basophils % 0.4 %; Eosinophils # 0.4 K/mcL (0.0-0.6); Eosinophils % 3.7 %; Hematocrit 36.1 % (37.5-50.1); Immature Granulocytes % 0.4 % (0-4); Lymphocytes # 1.8 K/mcL (0.6-4.6); Lymphocytes % 16.9 %; Mean Corpuscular HGB Conc 33.2 g/dL (31.6-35.5); Mean Corpuscular Volume 96.3 fL (83.0-100.0); Mean Platelet Volume 9.3 fL (9.4-12.4); Monocytes # 0.8 K/mcL (0.0-1.3); Neutrophils # 7.8 K/mcL (1.6-8.9); Platelet Count 119 K/mcL (140-400); Red Blood Count 3.75 M/mcL (4.19-5.50); Red Cell Distribution Width 13.9 % (11.5-14.5); Segmented Neutrophils % 71.6 %; White Blood Count 10.8 K/mcL (4.3-11.1)
[2021-06-02 17:37] LABS: Alanine Aminotransferase 35 Units/L (7-52); Albumin 3.4 g/dL (3.5-5.7); Alkaline Phosphatase 71 Units/L (34-104); Aspartate Amino Transferase 29 Units/L (13-39); BUN/Creatinine Ratio 34 (6-26); Bilirubin,Total 0.7 mg/dL (0.3-1.0); Blood Urea Nitrogen 37 mg/dL (8-23); Calcium 8.4 mg/dL (8.6-10.3); Carbon Dioxide 18 mEq/L (23-29); Chloride 107 mEq/L (98-107); Globulin 3.3 g/dL (2.4-3.5); Glucose 136 mg/dL (70-105); Osmolality,Calculated 289 (280-300); Potassium 4.8 mEq/L (3.5-5.1); Sodium 134 mEq/L (136-145); Total Protein 6.7 g/dL (6.4-8.9); eGFR For African Americans > 60 (> 60); eGFR For Non-African Americans > 60 (> 60)
[2021-06-02] MEDS: cefTRIAXone 1,000 MG in 0.9 % Sodium Chloride Mini Bag 100 ML IVPB SCH (17:49)
[2021-06-02] MEDS ORDERED: Insulin DETEMIR 100 UNIT/ML X5UNITS SUBQ SCH (21:00)
[2021-06-03] MEDS: Acetaminophen IV 1,000 MG/100 ML BAG IVPB SCH ×4 (04:38→23:28)
[2021-06-03] MEDS: Aspirin Enteric Coated 81 MG Tablet PO SCH (09:16)
[2021-06-03] MEDS ORDERED: Lidocaine -MPF 2% 2 ML VIAL ONE (09:35)
[2021-06-03] MEDS ORDERED: *HR* Rocuronium Bromide 50 MG/5 ML VIAL ONE (09:35)
[2021-06-03] MEDS ORDERED: Lidocaine -MPF 4% 5 ML AMPUL ONE (09:35)
[2021-06-03] MEDS ORDERED: Ondansetron 4 MG/2 ML VIAL ONE (09:35)
[2021-06-03] MEDS ORDERED: *HR* Propofol 200 MG/20 ML VIAL IVP ONE (09:35)
[2021-06-03] MEDS ORDERED: Ethanol\\Acetic Acid\\Na Ace\\Ben 1,000 ML IRRIG.SOLN IR ONE (09:54)
[2021-06-03] MEDS ORDERED: Vancomycin 1,000 MG VIAL ONE (09:54)
[2021-06-03 10:16] LABS: Basophils % 0.3 %; Eosinophils # 0.5 K/mcL (0.0-0.6); Eosinophils % 5.6 %; Hematocrit 30.6 % (37.5-50.1); Immature Granulocytes % 0.5 % (0-4); Lymphocytes # 1.2 K/mcL (0.6-4.6); Lymphocytes % 13.7 %; Mean Corpuscular Hemoglobin 32.2 pg (28.0-33.3); Mean Corpuscular Volume 94.7 fL (83.0-100.0); Mean Platelet Volume 9.6 fL (9.4-12.4); Monocytes # 0.8 K/mcL (0.0-1.3); Monocytes % 8.8 %; Neutrophils # 6.1 K/mcL (1.6-8.9); Platelet Count 118 K/mcL (140-400); Red Blood Count 3.23 M/mcL (4.19-5.50); Red Cell Distribution Width 13.6 % (11.5-14.5); Segmented Neutrophils % 71.1 %; White Blood Count 8.6 K/mcL (4.3-11.1)
[2021-06-03] MEDS: CALCIPOTRIENE TP SCH (10:22)
[2021-06-03] MEDS: Insulin LISPRO 300 UNITS/3 ML VIAL SUBQ SCH (10:22)
[2021-06-03 10:24] LABS: Hemoglobin 10.4 g/dL (12.9-16.9)
[2021-06-03 10:33] LABS: Alanine Aminotransferase 29 Units/L (7-52); Albumin 3.4 g/dL (3.5-5.7); Albumin/Globulin Ratio 1.2 (1.1-2.2); Alkaline Phosphatase 67 Units/L (34-104); Aspartate Amino Transferase 26 Units/L (13-39); BUN/Creatinine Ratio 33 (6-26); Bilirubin,Total 0.6 mg/dL (0.3-1.0); Blood Urea Nitrogen 26 mg/dL (8-23); Calcium 8.6 mg/dL (8.6-10.3); Carbon Dioxide 18 mEq/L (23-29); Chloride 110 mEq/L (98-107); Globulin 2.9 g/dL (2.4-3.5); Glucose 138 mg/dL (70-105); Osmolality,Calculated 289 (280-300); Potassium 4.1 mEq/L (3.5-5.1); Sodium 136 mEq/L (136-145); Total Protein 6.3 g/dL (6.4-8.9); eGFR For African Americans > 60 (> 60); eGFR For Non-African Americans > 60 (> 60)
[2021-06-03 10:34] LABS: VBG HCO3 20 mEq/L (21-27); VBG PCO2 37 mmHg (41-51); VBG PH 7.35 pH Units (7.32-7.42); VBG PO2 23 mmHg (25-50)
[2021-06-03] MEDS ORDERED: Ondansetron 4 MG/2 ML VIAL IVP PRN (10:44)
[2021-06-03] MEDS ORDERED: *HR* OxyCODONE Immed Rel 5 MG TABLET PO PRN (10:44)
[2021-06-03] MEDS ORDERED: Acetaminophen IV 1,000 MG/100 ML BAG IVPB PRN (10:44)
[2021-06-03] MEDS ORDERED: *HR* Phenylephrine 10 MG/ML VIAL ONE (10:52)
[2021-06-03] MEDS ORDERED: Acetaminophen IV 1,000 MG/100 ML BAG IVPB ONE (11:17)
[2021-06-03 11:19] LABS: VBG Base Excess -5 mEq/L; VBG Chloride 110 mEq/L (98-107); VBG Glucose 150 mg/dl (65-95); VBG HCO3 20 mEq/L (21-27); VBG Ionized Calcium 1.27 mmol/L (1.15-1.35); VBG Oxygen Saturation 48 %; VBG PCO2 40 mmHg (41-51); VBG PH 7.32 pH Units (7.32-7.42); VBG PO2 28 mmHg (25-50); VBG Total CO2 22 mEq/L
[2021-06-03] MEDS ORDERED: Sugammadex Sodium 200 MG/2 ML VIAL IV ONE (11:43)
[2021-06-03] MEDS ORDERED: Haloperidol Lactate 5 MG/ML VIAL ONE (12:21)
[2021-06-03] MEDS ORDERED: Ringers Solution, Lactated 1,000 ML ONE (12:24)
[2021-06-03] MEDS: *HR* HYDROmorphone PF 0.5 MG/0.5 ML SYRINGE IVP PRN ×2 (12:35→12:44)
[2021-06-03] MEDS ORDERED: Albumin Human 5% 25.0 GM/500 ML IV.SOLN ONE (12:49)
[2021-06-03] MEDS ORDERED: Calcium Gluconate 1,000 MG/10 ML VIAL ONE (13:21)
[2021-06-03 13:28] LABS: ABG Base Excess -11 mEq/L (-2 to 3); ABG Chloride 110 mEq/L (98-107); ABG Glucose 163 mg/dL (60-95); ABG HCO3 18 mEq/L (21-27); ABG Oxygen Saturation 46 % (95-98); ABG PCO2 48 mmHg (35-45); ABG PH 7.18 pH Units (7.32-7.45); ABG PO2 32 mmHg (85-104); ABG TCO2 19 mEq/L (20-26)
[2021-06-03] MEDS ORDERED: Haloperidol Lactate 5 MG/ML VIAL IM PRN (14:38)
[2021-06-03] MEDS ORDERED: *HR* Promethazine 25 MG/ML VIAL IM PRN (14:48)
[2021-06-03] MEDS ORDERED: Naloxone 0.4 MG/ML INJ IVP PRN (14:48)
[2021-06-03] MEDS ORDERED: cefTRIAXone 1,000 MG in 0.9 % Sodium Chloride Mini Bag 100 ML IVPB SCH (15:00)
[2021-06-03] MEDS ORDERED: Haloperidol Lactate 5 MG/ML VIAL IM ONE (15:09)
[2021-06-03 15:53] LABS: ABG Base Excess -6 mEq/L (-2 to 3); ABG HCO3 20 mEq/L (21-27); ABG Oxygen Saturation 94 % (95-98); ABG PCO2 43 mmHg (35-45); ABG PH 7.28 pH Units (7.32-7.45); ABG PO2 77 mmHg (85-104); ABG TCO2 21 mEq/L (20-26)
[2021-06-03] MEDS ORDERED: CefTRIAXone 1,000 MG VIAL ONE (15:59)
[2021-06-03] MEDS: Clindamycin 900 MG/50 ML 900 MG/50 ML IV.SOLN IVPB SCH ×2 (16:01→23:33)
[2021-06-03] MEDS ORDERED: Ringers Solution, Lactated 1,000 ML IVC ONE ×2 (16:26→17:25)
[2021-06-03] MEDS ORDERED: Albumin 25% 25gram/100mL 25 GM/100 ML IV.SOLN IVPB ONE (17:18)
[2021-06-03 17:48] LABS: Mean Corpuscular Volume 95.9 fL (83.0-100.0)
[2021-06-03 17:50] LABS: Basophils % 0.3 %; Eosinophils # 0.1 K/mcL (0.0-0.6); Eosinophils % 1.9 %; Hematocrit 18.8 % (37.5-50.1); Hemoglobin 6.2 g/dL (12.9-16.9); Immature Granulocytes % 0.4 % (0-4); Immature Platelets 2.1 % (1.1-6.1); Lymphocytes # 0.7 K/mcL (0.6-4.6); Lymphocytes % 10.4 %; Mean Corpuscular Hemoglobin 31.6 pg (28.0-33.3); Mean Platelet Volume 9.2 fL (9.4-12.4); Monocytes # 0.7 K/mcL (0.0-1.3); Monocytes % 9.9 %; Red Blood Count 1.96 M/mcL (4.19-5.50); Red Cell Distribution Width 13.4 % (11.5-14.5); Segmented Neutrophils % 77.1 %; White Blood Count 6.8 K/mcL (4.3-11.1)
[2021-06-03 17:51] LABS: Neutrophils # 5.2 K/mcL (1.6-8.9); Platelet Count 84 K/mcL (140-400)
[2021-06-03 18:10] LABS: Alanine Aminotransferase 22 Units/L (7-52); Albumin 2.8 g/dL (3.5-5.7); Albumin/Globulin Ratio 1.4 (1.1-2.2); Alkaline Phosphatase 48 Units/L (34-104); Aspartate Amino Transferase 27 Units/L (13-39); BUN/Creatinine Ratio 31 (6-26); Bilirubin,Total 0.8 mg/dL (0.3-1.0); Blood Urea Nitrogen 25 mg/dL (8-23); Calcium 8.3 mg/dL (8.6-10.3); Carbon Dioxide 20 mEq/L (23-29); Chloride 109 mEq/L (98-107); Glucose 179 mg/dL (70-105); Osmolality,Calculated 289 (280-300); Potassium 4.5 mEq/L (3.5-5.1); Sodium 135 mEq/L (136-145); Total Protein 4.8 g/dL (6.4-8.9); eGFR For African Americans > 60 (> 60); eGFR For Non-African Americans > 60 (> 60)
[2021-06-03] MEDS: Ringers Solution, Lactated 1,000 ML IVC SCH (20:38)
[2021-06-03] MEDS ORDERED: 0.9 % Sodium Chloride 250 ML ONE (23:00)
[2021-06-04] MEDS: Ringers Solution, Lactated 1,000 ML IVC SCH ×5 (02:48→19:58)
[2021-06-04 08:05] LABS: Basophils % 0.2 %; Eosinophils % 0.2 %; Hematocrit 28.4 % (37.5-50.1); Hemoglobin 9.4 g/dL (12.9-16.9); Immature Granulocytes % 0.4 % (0-4); Immature Platelets 1.9 % (1.1-6.1); Lymphocytes % 8.1 %; Mean Corpuscular HGB Conc 33.1 g/dL (31.6-35.5); Mean Corpuscular Hemoglobin 30.6 pg (28.0-33.3); Mean Corpuscular Volume 92.5 fL (83.0-100.0); Mean Platelet Volume 9.5 fL (9.4-12.4); Monocytes # 1.2 K/mcL (0.0-1.3); Monocytes % 9.6 %; Neutrophils # 10.4 K/mcL (1.6-8.9); Platelet Count 108 K/mcL (140-400); Red Blood Count 3.07 M/mcL (4.19-5.50); Red Cell Distribution Width 14.6 % (11.5-14.5); Segmented Neutrophils % 81.5 %; White Blood Count 12.7 K/mcL (4.3-11.1)
[2021-06-04 08:11] LABS: Alanine Aminotransferase 21 Units/L (7-52); Albumin 3.5 g/dL (3.5-5.7); Albumin/Globulin Ratio 1.6 (1.1-2.2); Alkaline Phosphatase 56 Units/L (34-104); Aspartate Amino Transferase 32 Units/L (13-39); BUN/Creatinine Ratio 25 (6-26); Bilirubin,Total 1.7 mg/dL (0.3-1.0); Blood Urea Nitrogen 18 mg/dL (8-23); Calcium 8.6 mg/dL (8.6-10.3); Carbon Dioxide 17 mEq/L (23-29); Chloride 106 mEq/L (98-107); Globulin 2.2 g/dL (2.4-3.5); Glucose 207 mg/dL (70-105); Osmolality,Calculated 288 (280-300); Potassium 4.1 mEq/L (3.5-5.1); Sodium 135 mEq/L (136-145); Total Protein 5.7 g/dL (6.4-8.9); eGFR For African Americans > 60 (> 60); eGFR For Non-African Americans > 60 (> 60)
[2021-06-04] MEDS ORDERED: Furosemide 20 MG/2 ML VIAL IVP ONE (08:35)
[2021-06-04] MEDS: Acetaminophen IV 1,000 MG/100 ML BAG IVPB SCH ×2 (09:00→15:09)
[2021-06-04] MEDS: Aspirin 81 MG TAB.CHEW PO SCH (09:36)
[2021-06-04] MEDS: Piperacillin/Tazobactam 3.375 GM in 0.9 % Sodium Chloride Mini Bag 100 ML IVPB SCH ×2 (13:18→20:04)
[2021-06-04] MEDS: Insulin LISPRO 300 UNITS/3 ML VIAL SUBQ SCH (14:25)
[2021-06-04 15:48] LABS: Hematocrit 27.7 % (37.5-50.1); Hemoglobin 9.2 g/dL (12.9-16.9)
[2021-06-04 20:39] LABS: Hematocrit 25.3 % (37.5-50.1)
[2021-06-05] MEDS: Acetaminophen IV 1,000 MG/100 ML BAG IVPB SCH ×3 (00:21→17:52)
[2021-06-05 02:50] LABS: Basophils % 0.2 %; Eosinophils # 0.2 K/mcL (0.0-0.6); Eosinophils % 1.7 %; Hematocrit 24.2 % (37.5-50.1); Hemoglobin 8.5 g/dL (12.9-16.9); Immature Granulocytes % 0.4 % (0-4); Lymphocytes # 1.4 K/mcL (0.6-4.6); Lymphocytes % 14.6 %; Mean Corpuscular HGB Conc 35.1 g/dL (31.6-35.5); Mean Corpuscular Hemoglobin 31.7 pg (28.0-33.3); Mean Corpuscular Volume 90.3 fL (83.0-100.0); Mean Platelet Volume 9.4 fL (9.4-12.4); Monocytes % 10.2 %; Neutrophils # 6.8 K/mcL (1.6-8.9); Platelet Count 101 K/mcL (140-400); Red Blood Count 2.68 M/mcL (4.19-5.50); Red Cell Distribution Width 14.3 % (11.5-14.5); Segmented Neutrophils % 72.9 %; White Blood Count 9.3 K/mcL (4.3-11.1)
[2021-06-05 03:01] LABS: BUN/Creatinine Ratio 20 (6-26); Blood Urea Nitrogen 14 mg/dL (8-23); Calcium 8.2 mg/dL (8.6-10.3); Carbon Dioxide 18 mEq/L (23-29); Chloride 106 mEq/L (98-107); Glucose 155 mg/dL (70-105); Osmolality,Calculated 286 (280-300); Potassium 3.3 mEq/L (3.5-5.1); Sodium 136 mEq/L (136-145); eGFR For African Americans > 60 (> 60); eGFR For Non-African Americans > 60 (> 60)
[2021-06-05 03:19] LABS: Thyroid Stimulating Hormone 2.395 mcIU/mL (0.340-5.600)
[2021-06-05] MEDS: Piperacillin/Tazobactam 3.375 GM in 0.9 % Sodium Chloride Mini Bag 100 ML IVPB SCH ×3 (03:27→19:34)
[2021-06-05 03:28] LABS: Folate 12.3 ng/mL (3.0-16.0)
[2021-06-05] MEDS: Ringers Solution, Lactated 1,000 ML IVC SCH (06:50)
[2021-06-05] MEDS ORDERED: Potassium Chloride 40 MEQ, Lidocaine 1% 2 ML in 0.9 % Sodium Chloride 500 ML IVPB ONE (07:53)
[2021-06-05] MEDS ORDERED: Iron Sucrose Complex 400 MG in 0.9 % Sodium Chloride 250 ML IVPB ONE (07:55)
[2021-06-05] MEDS: Aspirin 81 MG TAB.CHEW PO SCH (09:02)
[2021-06-05] MEDS: Folic Acid 1 MG TABLET PO SCH (09:03)
[2021-06-05 13:49] LABS: Hematocrit 26.9 % (37.5-50.1); Hemoglobin 9.4 g/dL (12.9-16.9)
[2021-06-05] MEDS ORDERED: Furosemide 40 MG/4 ML VIAL IVP ONE (17:35)
[2021-06-05] MEDS ORDERED: Dextrose Gel 15 GM/37.5 ML TUBE PO PRN ×2 (17:37)
[2021-06-05] MEDS ORDERED: *HR* Dextrose 50 % in Water (Vial) 50 ML VIAL IVP PRN (17:37)
[2021-06-05] MEDS ORDERED: D5% in Water 1,000 ML IVC PRN (17:37)
[2021-06-05] MEDS: Cholecalciferol (D-3) 1,000 UNIT (25MCG) TABLET PO SCH (19:34)
[2021-06-05] MEDS ORDERED: Mirtazapine 15 MG TABLET PO SCH (21:00)
[2021-06-05] MEDS ORDERED: Insulin LISPRO 300 UNITS/3 ML VIAL SUBQ SCH (21:00)
[2021-06-05] MEDS ORDERED: rOPINIRole 0.25 MG TABLET PO SCH (21:00)
[2021-06-06] MEDS: Piperacillin/Tazobactam 3.375 GM in 0.9 % Sodium Chloride Mini Bag 100 ML IVPB SCH ×2 (04:39→11:49)
[2021-06-06] MEDS: Ringers Solution, Lactated 1,000 ML IVC SCH (04:44)
[2021-06-06 05:15] LABS: Basophils % 0.3 %; Eosinophils # 0.2 K/mcL (0.0-0.6); Eosinophils % 2.1 %; Hematocrit 30.2 % (37.5-50.1); Hemoglobin 10.6 g/dL (12.9-16.9); Immature Granulocytes % 0.6 % (0-4); Lymphocytes # 1.4 K/mcL (0.6-4.6); Lymphocytes % 12.7 %; Mean Corpuscular HGB Conc 35.1 g/dL (31.6-35.5); Mean Corpuscular Hemoglobin 31.9 pg (28.0-33.3); Mean Platelet Volume 9.6 fL (9.4-12.4); Monocytes # 0.9 K/mcL (0.0-1.3); Monocytes % 8.4 %; Neutrophils # 8.5 K/mcL (1.6-8.9); Platelet Count 139 K/mcL (140-400); Red Blood Count 3.32 M/mcL (4.19-5.50); Red Cell Distribution Width 14.7 % (11.5-14.5); Segmented Neutrophils % 75.9 %; White Blood Count 11.1 K/mcL (4.3-11.1)
[2021-06-06 05:30] LABS: BUN/Creatinine Ratio 15 (6-26); Blood Urea Nitrogen 10 mg/dL (8-23); Calcium 8.6 mg/dL (8.6-10.3); Carbon Dioxide 22 mEq/L (23-29); Chloride 101 mEq/L (98-107); Glucose 161 mg/dL (70-105); Osmolality,Calculated 283 (280-300); Potassium 3.1 mEq/L (3.5-5.1); Sodium 135 mEq/L (136-145); eGFR For African Americans > 60 (> 60); eGFR For Non-African Americans > 60 (> 60)
[2021-06-06] MEDS ORDERED: Furosemide 40 MG/4 ML VIAL IVP ONE (07:40)
[2021-06-06] MEDS: Folic Acid 1 MG TABLET PO SCH (07:55)
[2021-06-06] MEDS: Aspirin 81 MG TAB.CHEW PO SCH (07:56)
[2021-06-06] MEDS: Cholecalciferol (D-3) 1,000 UNIT (25MCG) TABLET PO SCH (07:56)
[2021-06-06] MEDS: Insulin LISPRO 300 UNITS/3 ML VIAL SUBQ SCH ×2 (07:56→11:58)
[2021-06-06] MEDS ORDERED: lisinopriL 20 MG TABLET PO SCH (09:00)
[2021-06-06 11:05] VITALS: BP 127/78; PULSE 100; TEMP 100.2; O2SAT 97
[2021-06-06 12:54] LABS: Influenza A PCR Negative (Negative); Influenza B PCR Negative (Negative); Resp. Syncytial Virus PCR Negative (Negative)
[2021-06-06 13:10] LABS: SARS-CoV-2 by PCR (In House) Negative (Negative)
== END 2021-06-06 15:05 | DRG 521 ==
LOC: 4WAOSI → SUATTDRO 06-01 11:45 → 3NENU 06-02 08:58
PROVIDERS: ADMIT Internal Medicine; ATTEND Family Medicine